=== PATIENT | male | born 1950 | race Caucasian/White ===

== ENCOUNTER 2017-05-24 10:54 | Inpatient (IN) | payer MEDICARE, OTHER ==
[2017-05-24 11:08] VITALS: BMI 26.6
--- NOTE | 2017-05-24 11:10 | ED PDOC ---
Arrival/HPI - General Time Seen by Provider: 05/24/17 10:59 Historian: Patient - History of Present Illness Narrative History of Present Illness (Text): 05/24/17 11:00 Mil Ruiz is a 66 year old male who presents to the emergency department complaining of continuous chest heaviness with associated mild shortness of breath since 23:00 last night. Patient notes that he has had multiple similar episodes previously. Patient endorses that he took his aspirin medication this morning. Patient denies any nausea, diarrhea, diaphoresis, or any other complaints at this time. Patient is not a smoker or a drinker. Time/Duration: Other (since 23:00 last night) Symptom Course: Unchanged Severity Level: Mild Activities at Onset: Rest Context: Home Past Medical History - Provider Review Nursing Documentation Reviewed: Yes - Infectious Disease Hx of Infectious Diseases: None - Cardiac Hx Hypertension: Yes - Pulmonary Hx Respiratory Disorders: No - Neurological Hx Neurological Disorder: No - HEENT Hx Blind: Yes (left eye, diminished vision right eye) Hx Glaucoma: Yes (both eyes) - Renal Hx Renal Disorder: No - Endocrine/Metabolic Hx Diabetes Mellitus Type 2: Yes - Hematological/Oncological Hx Blood Transfusions: No Hx Blood Transfusion Reaction: No - Integumentary Hx Dermatological Disorder: No - Musculoskeletal/Rheumatological Hx Musculoskeletal Disorders: No - Gastrointestinal Hx Gastrointestinal Disorders: No - Genitourinary/Gynecological Hx Genitourinary Disorders: No - Psychiatric Hx Psychophysiologic Disorder: No Hx Substance Use: No - Past Surgical History Past Surgical History: Non-Contributing - Surgical History Hx Cataract Extraction: Yes Other/Comment: Retina surger Left eye, - Anesthesia Hx Anesthesia: Yes - Suicidal Assessment Feels Threatened In Home Enviroment: No Family/Social History - Physician Review Nursing Documentation Reviewed: Yes Family/Social History: No Known Family HX Smoking Status: Never Smoked Hx Alcohol Use: No Hx Substance Use: No Hx Substance Use Treatment: No Allergies/Home Meds Allergies/Adverse Reactions: Allergies No Known Allergies Allergy (Verified 03/31/13 16:18) Home Medications: Home Meds Medication Instructions Recorded Confirmed Losartan [Cozaar] 25 mg PO DAILY 03/31/13 06/18/15 Aspirin [Aspirin Chewable] 81 mg PO DAILY 06/18/15 06/18/15 Bimatoprost [Lumigan] 1 drop OD BID 06/18/15 06/18/15 Brimonidine 0.15% [Alphagan P 1 drop OD TID 06/18/15 06/18/15 0.15% Opht] Dorzolamide HCl/Timolol Maleat 1 drop OD DAILY 06/18/15 06/18/15 [Dorzolamide-Timolol Eye Drops] Glyburide/Metformin HCl 2 tab PO Q12H 06/18/15 06/18/15 [Glucovance 5-500 mg Tablet] Pilocarpine 1% Opht [Isopto 1 drop OD QID 06/18/15 06/18/15 Carpine 1% Opht Soln] Prednisolone Acetate [Omnipred] 1 drop OS QID 06/18/15 06/18/15 Review of Systems - Physician Review All systems were reviewed & negative as marked: Yes - Review of Systems Constitutional: absent: Fevers, Night Sweats Eyes: absent: Vision Changes ENT: absent: Hearing Changes Respiratory: SOB (mild). absent: Cough Cardiovascular: Chest Pain (chest heaviness) Gastrointestinal: absent: Abdominal Pain Genitourinary Male: absent: Dysuria, Frequency Musculoskeletal: absent: Arthralgias, Back Pain Skin: absent: Rash, Pruritis Neurological: absent: Headache, Dizziness Endocrine: absent: Diaphoresis, Polyuria Hemo/Lymphatic: absent: Adenopathy Psychiatric: absent: Anxiety, Depression Physical Exam Vital Signs Reviewed: Yes Vital Signs Temp Pulse Resp BP Pulse Ox 05/24/17 13:54 71 18 139/78 100 05/24/17 12:53 63 16 104/63 100 05/24/17 12:38 69 16 103/59 L 100 05/24/17 12:37 60 20 87/47 L 99 05/24/17 11:06 98.4 F 88 16 158/87 H 100 05/24/17 11:00 65 18 116/69 98 Temperature: Afebrile Blood Pressure: Normal Pulse: Regular Respiratory Rate: Normal Appearance: Positive for: Well-Appearing, Non-Toxic, Comfortable, Uncomfortable Pain Distress: Mild Mental Status: Positive for: Alert and Oriented X 3 - Systems Exam Head: Present: Atraumatic, Normocephalic Pupils: Present: Other (Left eye blind with severe cataract) Mouth: Present: Moist Mucous Membranes Pharnyx: No: ERYTHEMA, EXUDATE, TONSILS ENLARGED Neck: Present: Normal Range of Motion Respiratory/Chest: Present: Clear to Auscultation, Good Air Exchange, Decreased Breath Sounds. No: Respiratory Distress, Accessory Muscle Use Cardiovascular: Present: Regular Rate and Rhythm, Normal S1, S2. No: Murmurs Abdomen: Present: Normal Bowel Sounds. No: Tenderness, Distention, Peritoneal Signs, Rebound, Guarding Upper Extremity: Present: Normal Inspection. No: Cyanosis, Edema Lower Extremity: Present: Normal Inspection. No: Edema Neurological: Present: GCS=15, CN II-XII Intact, Speech Normal, Motor Func Grossly Intact Skin: Present: Warm, Dry, Normal Color. No: Rashes Psychiatric: Present: Alert, Oriented x 3, Normal Insight, Normal Concentration Medical Decision Making ED Course and Treatment: 05/24/17 11:13 Impression: 66 year old male complaining of continuous chest heaviness with associated mild shortness of breath since 23:00 last night. Differential Diagnosis included but are not limited to: CHF vs. CAD Plan: -- EKG -- Chest X-ray -- Labs -- Nitroglycerin -- Reassess and disposition Prior Visits: Notes and results from previous visits were reviewed. Patient was last seen in the emergency department on 06/18/15 for hypertension. Patient left against medical advice. Progress Notes: 05/24/17 11:35 Chest X-ray: Creator : Christen Magana MD FINDINGS: LUNGS:The lungs are clear. PLEURA:No significant pleural effusion identified, no pneumothorax apparent. CARDIOVASCULAR:The heart is normal in size. There is stable position of a left- sided dual lead transvenous permanent pacing device. OSSEOUS STRUCTURES:No significant abnormalities. VISUALIZED UPPER ABDOMEN:Normal. OTHER FINDINGS:None. IMPRESSION: No active pulmonary disease. 05/24/17 12:[address] Saul, who is aware and will come to emergency department for consult. 05/24/17 12:[address] Loredo, who is aware and accepts patient admission to telemetry. 05/24/17 12:20 EKG is pacing rate approximately [address] or T-wave changes 05/24/17 14:06 , was here and saw the patient - Lab Interpretations Lab Results: 05/24/17 11:00 05/24/17 11:00 Lab Results 05/24/17 11:00: Sodium 140, Potassium 3.6, Chloride 108 H, Carbon Dioxide 18 L, Anion Gap 17, BUN 21, Creatinine 1.3, Est GFR ( Amer) > 60, Est GFR (Non- Af Amer) 55, Random Glucose 210 H, Calcium 9.6, Total Bilirubin 0.4, AST 18, ALT 29, Alkaline Phosphatase 109, Lactate Dehydrogenase 310 L, Total Creatine Kinase 36, Troponin I 0.11 D, NT-Pro-B Natriuret Pep 66.0, Total Protein 7.3, Albumin 4.0, Globulin 3.4, Albumin/Globulin Ratio 1.2 05/24/17 11:00: PT 10.9, INR 0.95, APTT 31.3 05/24/17 11:00: WBC 9.2, RBC 5.12, Hgb 14.5, Hct 44.4, MCV 86.7, MCH 28.3, MCHC 32.7, RDW 14.8 H, Plt Count 267, MPV 10.2, Gran % 63.6, Lymph % (Auto) 21.3 L, Dixie % (Auto) 6.3 H, Eos % (Auto) 8.7 H, Baso % (Auto) 0.1, Gran # 5.87, Lymph # 2.0, Dixie # 0.6, Eos # 0.8 H, Baso # 0.01 I have reviewed the lab results: Yes - RAD Interpretation Radiology Orders: 05/24/17 11:08 CHEST PORTABLE [RAD] Stat - Medication Orders Current Medication Orders: Discontinued Medications Nitroglycerin (Nitrostat Sl Tab) 0.4 mg SL STAT STA Stop: 05/24/17 11:10 Last Admin: 05/24/17 11:29 Dose: 0.4 mg Nitroglycerin (Nitro-Bid 2% Oint) 1 ea TOP STAT STA Stop: 05/24/17 12:20 Last Admin: 05/24/17 12:37 Dose: Not Given Non-Admin Reason: BP Parameters Not Met - Scribe Statement The provider has reviewed the documentation as recorded by the Scribe Anni Espinal Provider Scribe Attestation: All medical record entries made by the Scribe were at my direction and personally dictated by me. I have reviewed the chart and agree that the record accurately reflects my personal performance of the history, physical exam, medical decision making, and the department course for this patient. I have also personally directed, reviewed, and agree with the discharge instructions and disposition. Disposition/Present on Arrival - Present on Arrival Any Indicators Present on Arrival: No History of DVT/PE: No History of Uncontrolled Diabetes: Yes Urinary Catheter: No History of Decub. Ulcer: No History Surgical Site Infection Following: None - Disposition Have Diagnosis and Disposition been Completed?: Yes Diagnosis: Chest pain, Elevated troponin Disposition: HOSPITALIZED Disposition Time: 12:21 Patient Plan: Admission, Telemetry Patient Problems: Current Active Problems Problem Status Onset Chest pain Acute Elevated troponin Acute Condition: SERIOUS
[2017-05-24 11:34] LABS: BASO # 0.01 K/mm3 (0.0-2.0); BASO % 0.1 % (0.0-3.0); EOS # 0.8 (0.0-0.7); EOS % 8.7 % (1.5-5.0); GRAN # 5.87 (1.4-6.5); GRAN % 63.6 % (50.0-68.0); HEMOGLOBIN 14.5 g/dL (14.0-18.0); LYMPH % 21.3 % (22.0-35.0); MEAN CELL VOLUME 86.7 fl (80.0-105.0); MEAN CORPUSCULAR HEMOGLOBIN 28.3 pg (25.0-35.0); MEAN CORPUSCULAR HGB CONC 32.7 g/dl (31.0-37.0); MEAN PLATELET VOLUME 10.2 fl (7.0-11.0); MONO # 0.6 (0.1-0.6); MONO % 6.3 % (1.0-6.0); RBC 5.12 10^6/uL (3.5-6.1); RED CELL DISTRIBUTION WIDTH 14.8 % (11.5-14.5); WHITE BLOOD COUNT 9.2 10^3/ul (4.5-11.0)
--- NOTE | 2017-05-24 11:36 | RAD ---
HISTORY: Chest pain COMPARISON: 06/18/2015. FINDINGS: LUNGS: The lungs are clear. PLEURA: No significant pleural effusion identified, no pneumothorax apparent. CARDIOVASCULAR: The heart is normal in size. There is stable position of a left-sided dual lead transvenous permanent pacing device. OSSEOUS STRUCTURES: No significant abnormalities. VISUALIZED UPPER ABDOMEN: Normal. OTHER FINDINGS: None. IMPRESSION: No active pulmonary disease.
[2017-05-24 11:44] LABS: INR 0.95 (0.93-1.08); PARTIAL THROMBOPLASTIN TIME 31.3 Seconds (25.1-36.5); PROTHROMBIN TIME 10.9 SECONDS (9.4-12.5)
[2017-05-24 11:56] LABS: TROPONIN I 0.11 ng/mL
[2017-05-24 11:59] LABS: ALB/GLOB RATIO 1.2 (1.1-1.8); ALT/SGPT 29 U/L (7-56); AST/SGOT 18 U/L (17-59); BLOOD UREA NITROGEN 21 mg/dL (7-21); CALCIUM 9.6 mg/dL (8.4-10.5); GFR AFRICAN-AMERICAN > 60; GFR NON-AFRICAN AMERICAN 55
[2017-05-24] MEDS: Nitroglycerin 2% Ointment Foilpak UD TOP STA ×2 (12:30→12:37)
--- NOTE | 2017-05-24 13:54 | CARD ---
APPROVED REPORT EKG Measurement Heart [id number] <Conclusion> Electronic atrial pacemaker: 100 % A. Paced
[2017-05-24] MEDS ORDERED: Enoxaparin 80 mg Syringe SC STA (14:43)
[2017-05-24] MEDS ORDERED: Aspirin 325 mg EC Tablets PO STA (14:44)
[2017-05-24 19:24] LABS: CK MB% 5.1 % (2.5-3.0); CK-MB 14.9 ng/mL (0.0-3.6); TROPONIN I 3.3 ng/mL
--- NOTE | 2017-05-25 02:19 | CON ---
DATE: 05/24/2017 REASON FOR CONSULTATION AND FOLLOWUP: Chest pain, unstable angina, acute coronary syndrome, rule out non-ST segment myocardial infarction. BRIEF CLINICAL HISTORY: This is a 66-year-old male with past medical history significant for diabetes, hypertension, hyperlipidemia, history of sick sinus syndrome with status post permanent pacemaker on 04/01/2013. Last stress test on 04/03/2013 was normal, who was recently having chest pain off and on since a month. He used to see four months ago. He had a stress test and echo done and was told that probably one artery is blocking, suggested cardiac catheterization, but the patient wanted to be treated medically and has started taking . Now since one month, he is having chest pain off and on. Last night, the patient had chest pain since 11:00 p.m. and continued till today morning, so he decided to come to the Emergency Room. Chest pain felt the tightness, heaviness and squeezing pain of the chest. PAST MEDICAL HISTORY: Significant for diabetes, hypertension, hyperlipidemia, sick sinus syndrome, status past permanent pacemaker, dual chamber 04/01/2013. SOCIAL HISTORY: Denies smoking. Denies any history of alcohol abuse. 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 FAMILY HISTORY: Noncontributory. No history of coronary artery disease. CURRENT MEDICATIONS: The patient is taking prednisone, pilocarpine, metoprolol, losartan, glyburide, gemfibrozil, and aspirin. REVIEW OF SYSTEMS: As per HPI. PHYSICAL EXAMINATION: As follows: VITAL SIGNS: Temperature is afebrile, heart rate is 77, and blood pressure is 139/78. HEENT: PERRLA. Extraocular muscles are intact. NECK: Supple. No carotid bruits or thyromegaly. CHEST: Clear to auscultation. HEART: S1 and S2, regular. ABDOMEN: Soft. EXTREMITIES: Clubbing and cyanosis negative. LABORATORY DATA: Blood workup as follows: WBC of 9.0, hemoglobin of 14.0, hematocrit of 44.4, and platelet count of 267. Chemistry shows sodium of 140, potassium of 3.0, chloride of 108, carbon dioxide of 18, anion gap of 17, BUN of 21, and creatinine of 1.3. Troponin of 0.11. DIAGNOSTIC DATA: EKG shows normal sinus V-paced rhythm. Previous cardiac workup as follows, the patient's stress test on 04/03/2013 is essentially normal. The patient had a pacemaker on 04/05/2013, dual chamber pacemaker. Recently, four months ago at [facility], the patient has a stress test done by PMD and echo suggested one blockage and suggest cardiac catheterization. IMPRESSION: A 66-year-old male with a past history of diabetes, hypertension, hyperlipidemia, sick sinus syndrome, status post pacemaker on 03/29/2013, admitted with unstable angina, acute coronary syndrome. Risks and benefits already discussed with the patient,the patient's son and daughter, and the patient agreed to proceed for cardiac catheterization. In the interim, we will start beta-yonny, aspirin, Plavix, Lovenox and keep n.p.o. after 12 midnight for cardiac catheterization. Further recommendations after cardiac catheterization, we will follow with you. Thank you for providing us the opportunity in taking care of the patient, Mil Ruiz. Jaylene Saul MD
[2017-05-25 07:21] LABS: BASO # 0.01 K/mm3 (0.0-2.0); BASO % 0.1 % (0.0-3.0); GRAN # 6.03 (1.4-6.5); GRAN % 62.4 % (50.0-68.0); HEMOGLOBIN 14.2 g/dL (14.0-18.0); LYMPH # 1.9 (1.2-3.4); LYMPH % 19.2 % (22.0-35.0); MEAN CELL VOLUME 85.9 fl (80.0-105.0); MEAN CORPUSCULAR HEMOGLOBIN 27.5 pg (25.0-35.0); MEAN CORPUSCULAR HGB CONC 32.1 g/dl (31.0-37.0); MEAN PLATELET VOLUME 10.2 fl (7.0-11.0); MONO # 0.8 (0.1-0.6); MONO % 8.3 % (1.0-6.0); RBC 5.16 10^6/uL (3.5-6.1); RED CELL DISTRIBUTION WIDTH 14.7 % (11.5-14.5); WHITE BLOOD COUNT 9.7 10^3/ul (4.5-11.0)
[2017-05-25 07:53] LABS: LDL CHOLESTEROL 105 mg/dL (0-129)
[2017-05-25 07:57] LABS: ALB/GLOB RATIO 1.2 (1.1-1.8); ALT/SGPT 31 U/L (7-56); AST/SGOT 56 U/L (17-59); BLOOD UREA NITROGEN 17 mg/dL (7-21); CALCIUM 9.4 mg/dL (8.4-10.5); GFR AFRICAN-AMERICAN > 60; GFR NON-AFRICAN AMERICAN 55; HDL CHOLESTEROL 33 mg/dL (29-60); MAGNESIUM 1.8 mg/dL (1.7-2.2)
[2017-05-25] MEDS ORDERED: Lidocaine 2% Inj (20ml) ONE (08:13)
[2017-05-25] MEDS ORDERED: Iodixanol 320 MG/ML 200 ML BOTTLE IV ONE (08:14)
[2017-05-25] MEDS ORDERED: HEPARIN SODIUM/NS 2,000 ML IV ONE (08:14)
[2017-05-25] MEDS ORDERED: Nitroglycerin 50mg in D5W 50 MG/250 ML BOTTLE IV ONE (08:14)
[2017-05-25] MEDS ORDERED: Midazolam 2 MG/2 ML VIAL ONE ×2 (08:14→09:16)
[2017-05-25 08:26] LABS: TROPONIN I 9.25 ng/mL
[2017-05-25 08:55] LABS: CK MB% 5.3 % (2.5-3.0); CK-MB 15.3 ng/mL (0.0-3.6)
[2017-05-25] MEDS ORDERED: Eptifibatide 20 mg/10mL Inj IVP ONE (09:31)
[2017-05-25] MEDS ORDERED: Eptifibatide 0.75 mg/ml 75 MG/100 ML BOTTLE IV ONE (10:01)
[2017-05-25] MEDS: Eptifibatide 0.75 mg/ml 75 MG/100 ML BOTTLE IV SCH ×2 (10:45→17:38)
[2017-05-25] MEDS: Morphine 2 mg/ml ISec IVP PRN ×2 (11:27→17:49)
[2017-05-25] MEDS: Insulin Reg-LOW-Coverage SC SCH ×3 (11:32→21:41)
[2017-05-25] MEDS: Sodium Chloride 0.9% 1,000 ML IV SCH ×2 (11:46→19:10)
--- NOTE | 2017-05-25 12:24 | CARD ---
APPROVED REPORT Procedure(s) performed: Left Heart Catheterization PTCA with Stenting of Mid LAD PTCA with Stenting of Mid Cx PTCA with Balloon Angioplasty of OM2 HISTORY The patient is a 66 year-old male with a history of : diabetes mellitus with oral treatment , hypertension , dyslipidemia , Admitted with ACS/ NSTEMI and rising troponin 0.11, 3.53 ,and 9.52. INDICATION The indication(s) include : non-STEMI . CASE TECHNIQUE The patient was brought urgently to the Cardiac Catheterization Laboratory in a fasting state and was prepped and draped in a sterile manner. The left wrist was infiltrated with 2% Lidocaine subcutaneous anesthesia. A 6FR GLIDESSignal VineTH ACCESS KIT sheath was inserted into the left radial artery without difficulty. Coronary angiography was performed using coronary diagnostic catheters. The left coronary system was accessed and visualized with a Diagnostic ,5 Fr JL 3.5 catheter. The right coronary system was accessed and visualized with a Diagnostic ,5 Fr JR 4 catheter. The left ventricle was accessed and visualized with a 5 Fr Pigtail 145 (Angled) catheter. The left internal mammary artery was accessed and visualized with a 5 Fr Pigtail 145 (Angled) catheter. Left ventricular/Aortic Valve gradient assessed on pullback. Left ventriculogram was performed in HAWKINS projection. Closure device was deployed with a Fr TR Band (Regular) without any complications. The patient tolerated the procedure well and there were no complications associated with the procedure. Vessel Analysis The patient's coronary anatomy is right dominant. The left main coronary artery is a medium size vessel with diffuse calcification noted throughout this vessel and without significant stenosis. The left main bifurcates to the left anterior descending and circumflex. The left anterior descending artery is a medium size vessel with diffuse calcification noted throughout this vessel and without significant stenosis. There is a 90% stenosis in the mid segment. two stenoses The first diagonal branch is a small size vessel with diffuse calcification noted throughout this vessel and without significant stenosis. The second diagonal branch is a small size vessel with diffuse calcification noted throughout this vessel and without significant stenosis. The circumflex artery is a medium size vessel with diffuse calcification noted throughout this vessel and without significant stenosis. heavily calcified There is a 99% stenosis in the mid segment. The first obtuse marginal branch is a medium size vessel with diffuse calcification noted throughout this vessel and without significant stenosis. There is a 60% stenosis in the distal segment. The second obtuse marginal branch is a medium size vessel with diffuse calcification noted throughout this vessel and without significant stenosis. There is a 90% stenosis in the ostial segment. The right coronary artery is a medium size vessel with diffuse calcification noted throughout this vessel and without significant stenosis. heavily calcified There is a 90% stenosis in the proximal, Mid, and distal segment. multiple stenoses The right posterior descending artery is a small size vessel with diffuse calcification noted throughout this vessel and without significant stenosis. There is a 90% stenosis in the mid segment. Left Ventricle The left ventricle is borderline in size with borderline contractility. Ischemic cardiomyopathy. The left ventricular ejection fraction is estimated to be 50%. The left ventricular end diastolic pressure is 16 mmHg. There was no gradient across the aortic valve upon pullback. PCI Technique Lesion Anticoagulation was achieved with Heparin. Percutaneous coronary intervention was performed on the mid circumflex artery segment . The lesion stenosis prior to intervention was 99% with JAYDEN flow. A 6 Fr XB 3.5 Guide Catheter was used to engage the ostium. BALLOON DILATION A Balloon catheter 2.0 x 12 mm Mini Trek RX was inserted and inflated up to 8.00atm for 15seconds. STENT DEPLOYMENT A drug-eluting stent 2.5 x 18 mm Resolute ARNULFO was inserted and inflated up to 8.00atm for 15seconds. Final angiography reveals 0 % stenosis with JAYDEN 3 flow. PCI Technique Lesion 2 Percutaneous Coronary Intervention was performed on the second obtuse marginal branch segment. The lesion stenosis prior to intervention was 90% with JAYDEN 2 flow. A 6 Fr XB 3.5 Guide Catheter was used to engage the ostium. BALLOON DILATION A Balloon catheter 2.0 x 12 mm Mini Trek RX was inserted and inflated up to 8.00atm for 15seconds. Final angiography reveals 10-20 % stenosis with JAYDEN 3 flow. PCI Technique Lesion 3 Percutaneous Coronary Intervention was performed on the mid left anterior descending artery segment. The lesion stenosis prior to intervention was 90% with JAYDEN 2 flow. A 6 Fr XB 3.5 Guide Catheter was used to engage the ostium. A 0.014 x 182 cm Choice PT Extra Support Interventional Guidewire was used to cross the lesion. BALLOON DILATION A Balloon catheter 2.0 x 12 mm Mini Trek RX was inserted and inflated up to 10.00atm for 15seconds. STENT DEPLOYMENT A drug-eluting stent 3.0 x 26 mm Resolute ARNULFO was inserted and inflated up to 12.00atm for 15seconds. POST STENT DEPLOYMENT BALLOON DILATION A Balloon catheter 3.25 x 12 mm Trek RX NC was inserted and inflated up to 14.00atm for 15seconds. Final angiography reveals 0 % stenosis with JAYDEN 3 flow. Conclusion Triple vessel CAD, heavily caicified coronaries, distal vessel are not good target for CABG. Preserved LV [id number], EDP-16 mmof hg. Successful PTCA with ARNULFO of Mid LAD Successful PTCA with ARNULFO of Mid Cx Successful POBA of OM2 Recommendations Daily ASA with Plavix for at least one year Aggressive Medical TherapyCardiac Risk Reduction Program Weight Loss Reduction Program staged PTCA of RCA in four weeks on 06/21/2017 at 7:30 am CC; Drs. Gila Crooks/ Hudson Loredo
--- NOTE | 2017-05-25 12:42 | PN ---
DATE: 05/25/2017 REASON FOR CONSULTATION: Followup acute coronary syndrome, unstable angina with non-ST segment myocardial infarction, troponin 3.58, status post cath and PTCA. SUBJECTIVE: The patient denies any chest pain, shortness of breath or any palpitation. OBJECTIVE: GENERAL: Not in apparent distress. VITAL SIGNS: As follows; temperature afebrile, heart rate 62, and blood pressure 109/56. HEENT: PERRLA. Extraocular muscles intact. NECK: Supple. No carotid bruit or thyromegaly. CHEST: Clear to auscultation. HEART: S1 and S2 regular. ABDOMEN: Soft. EXTREMITIES: Clubbing and cyanosis negative. LABORATORY DATA: Blood workup as follows: WBC 9.7, hemoglobin 14.2, hematocrit of 44.3, and platelet count 262. Chemistry shows sodium 141, potassium 3.6, chloride 109, carbon dioxide 18, anion gap 17, BUN 17, and creatinine 1.3. Troponin this morning 9.25. IMPRESSION: Non-ST segment myocardial infarction, coronary artery disease, status post cardiac catheterization, 3 vessel disease, distal target right coronary artery circumflex not good for open heart surgery, so patient underwent percutaneous transluminal coronary angioplasty with drug-eluting stent of left anterior descending and drug-eluting stent of circumflex and plain balloon angioplasty of obtuse marginal 1. PLAN: Schedule for PTCA of RCA in 4 weeks on 06/21/2017 at 07:30. Interim continue aspirin, Plavix mandatory for 1 year preferable extended period of time, continue overnight. Interim continue beta-yonny. Continue losartan and continue atorvastatin. We will follow with you. Thank you Dr. Loredo for providing us the opportunity in taking care of the patient, Mil Ruiz. Jaylene Saul MD
--- NOTE | 2017-05-25 12:51 | HP ---
HISTORY OF PRESENT ILLNESS: This is a 66-year-old male who is coming to the hospital with complaints of chest pain substernal. He said it started at about 11:00 the night before coming to the hospital. The patient says that it is on and off. He did take his aspirin. He has no complaints of any fever or chills. No nausea or vomiting. He had a history of diabetes, hypertension, dyslipidemia, and sick sinus syndrome. The patient had a pacemaker placed in 03/2013. He also had a stress test at that time. He was offered cardiac cath, but the patient wanted to be treated likely. The patient is going for cardiac catheterization is feeling better. He has no nausea, no vomiting, no fevers. He says he feels well. He is able to ambulate. Chest tightness is gone. REVIEW OF SYSTEMS: All other review of symptoms are within normal limits except as mentioned. ALLERGIES: NO KNOWN DRUG ALLERGIES. PAST MEDICAL HISTORY: As above. SOCIAL HISTORY: The patient does not smoke or drink. 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 FAMILY HISTORY: Noncontributory. Unknown history of cardiac disease in the family. MEDICATIONS: Have been reviewed. He is on Cozaar, aspirin, Lumigan, Alphagan, dorzolamide/timolol, Glucovance/metformin, pilocarpine, and Prednisolone Acetate drops. PHYSICAL EXAMINATION: VITAL SIGNS: Temperature is 98.7, pulse is 68, blood pressure is 112/76, respirations are 20, and O2 saturations are 98%. Height is 5 feet 8 inches. Weight is 175 pounds. BMI is 26.6. GENERAL: The patient lying in bed, uncomfortable, and in no acute distress. HEENT: Atraumatic and normocephalic. Anicteric sclerae. Moist mucosa. [place] conjunctivae. No oral lesions. NECK: No JVD, anterior and posterior adenopathy, thyromegaly, or bruits. CARDIOVASCULAR: S1 and S2 regular. No murmur, rubs, or gallop. LUNGS: Clear to auscultation bilaterally. No wheezes, rales, or rhonchi. ABDOMEN: Bowel sounds are positive. Soft, nontender and nondistended. No hepatosplenomegaly. No rebound and no guarding EXTREMITIES: No cyanosis, clubbing, or edema. NEUROLOGIC: No facial asymmetry. Tongue is midline. No uvula deviation. Power is 5/5 upper extremity and lower extremity. Sensation intact in upper extremity and lower extremity. PSYCHIATRIC: She is awake, alert and oriented x3. No anxiety or depression. She has normal affect. GENITOURINARY: No CVA tenderness. VASCULAR: 2+ pulses in the carotid pulses and pedal pulses. SKIN: No erythema or nodules SPINE: Shows normal curvature. LABORATORY DATA: Labs have been reviewed. White count of 9.2 and hemoglobin of 14.5. Chemistry shows initial troponin was 0.11, second troponin is 3.3, he has potassium of 3.6, creatinine is 1.3, and albumin is 4.0. His proBNP is 66. LDL is 105. The patient's INR is 0.95. Chest x-ray done shows no active disease. EKG shows atrial placed rhythm. ASSESSMENT: 1. Non-ST elevation myocardial infarction. 2. Diabetes type 2. 3. Pacemaker. 4. Hypertension. 5. Glaucoma bilaterally. 6. Arthritis. PLAN: The patient is going for a cardiac catheterization. The patient is going to be on losartan for his hypertension. The patient is on aspirin daily. He is on metoprolol for his myocardial infarction. He is also given Plavix. He will need to be on all his medications. He was on metformin, I will hold that. He is on Gemfibrozil, I will hold that for now as well. I will place him on insulin sliding scale. We will wait for the results after the patient had his cardiac catheterization. The patient was seen by Dr. Saul, I appreciate his input. I did review his notes. Laith Loredo MD
[2017-05-25] MEDS: Brimonidine 0.15% 50 DROP/5 ML BOTTLE OD SCH ×3 (13:19→17:37)
[2017-05-25] MEDS: Dorzolamide 2%/Timolol 0.5% 100 DROP/10 ML BOTTLE OD SCH (13:19)
[2017-05-25 14:17] LABS: BASO # 0.01 K/mm3 (0.0-2.0); BASO % 0.1 % (0.0-3.0); EOS # 0.3 (0.0-0.7); EOS % 3.9 % (1.5-5.0); GRAN # 6.5 (1.4-6.5); GRAN % 77.2 % (50.0-68.0); HEMOGLOBIN 13.8 g/dL (14.0-18.0); LYMPH # 1.3 (1.2-3.4); LYMPH % 15.2 % (22.0-35.0); MEAN CELL VOLUME 85.8 fl (80.0-105.0); MEAN CORPUSCULAR HGB CONC 32.7 g/dl (31.0-37.0); MEAN PLATELET VOLUME 9.8 fl (7.0-11.0); MONO # 0.3 (0.1-0.6); MONO % 3.6 % (1.0-6.0); RBC 4.92 10^6/uL (3.5-6.1); RED CELL DISTRIBUTION WIDTH 14.8 % (11.5-14.5); WHITE BLOOD COUNT 8.4 10^3/ul (4.5-11.0)
[2017-05-25 14:29] LABS: BLOOD UREA NITROGEN 16 mg/dL (7-21); CALCIUM 8.6 mg/dL (8.4-10.5); GFR AFRICAN-AMERICAN > 60; GFR NON-AFRICAN AMERICAN > 60
--- NOTE | 2017-05-25 14:47 | CARD ---
APPROVED REPORT EKG Measurement Heart [id number] <Conclusion> Electronic atrial pacemaker Inferior infarct, age undetermined Increased ST elevation 2,3,F.
[2017-05-25] MEDS ORDERED: Bacitracin Ointment 30 GM TUBE TOP ONE (16:34)
[2017-05-25] MEDS ORDERED: Bacitracin 500 Units/gm Oint Foilpak UD ONE (16:41)
[2017-05-26] MEDS: Morphine 2 mg/ml ISec IVP PRN (00:50)
[2017-05-26] MEDS: Eptifibatide 0.75 mg/ml 75 MG/100 ML BOTTLE IV SCH ×2 (00:50→02:40)
[2017-05-26 06:48] LABS: HEMOGLOBIN 13.5 g/dL (14.0-18.0); MEAN CELL VOLUME 86.6 fl (80.0-105.0); MEAN CORPUSCULAR HEMOGLOBIN 27.8 pg (25.0-35.0); MEAN CORPUSCULAR HGB CONC 32.1 g/dl (31.0-37.0); MEAN PLATELET VOLUME 10.3 fl (7.0-11.0); RBC 4.86 10^6/uL (3.5-6.1); RED CELL DISTRIBUTION WIDTH 14.7 % (11.5-14.5); WHITE BLOOD COUNT 12.4 10^3/ul (4.5-11.0)
[2017-05-26 07:07] LABS: ALB/GLOB RATIO 1.2 (1.1-1.8); ALBUMIN 3.7 g/dL (3.0-4.8); ALT/SGPT 35 U/L (7-56); AST/SGOT 109 U/L (17-59); BLOOD UREA NITROGEN 14 mg/dL (7-21); CALCIUM 8.8 mg/dL (8.4-10.5); GFR AFRICAN-AMERICAN > 60; GFR NON-AFRICAN AMERICAN > 60
[2017-05-26] MEDS: Insulin Reg-LOW-Coverage SC SCH (08:05)
[2017-05-26 09:17] VITALS: O2SAT 97
[2017-05-26] MEDS: Dorzolamide 2%/Timolol 0.5% 100 DROP/10 ML BOTTLE OD SCH (09:22)
[2017-05-26] MEDS: Brimonidine 0.15% 50 DROP/5 ML BOTTLE OD SCH (09:22)
--- NOTE | 2017-05-26 10:04 | CARD ---
APPROVED REPORT EKG Measurement Heart [id number] <Conclusion> Poor data quality, interpretation may be adversely affected Electronic atrial pacemaker Inferior infarct, age undetermined Abnormal ECG
[2017-05-26] MEDS ORDERED: Potassium Chloride 20 mEq ER Tab PO ONE (10:20)
[2017-05-26] MEDS ORDERED: Pneumococcal 23-Valent Vaccine IM ONE (10:37)
--- NOTE | 2017-05-26 11:51 | CARD ---
APPROVED REPORT EKG Measurement Heart [id number] <Conclusion> Electronic atrial pacemaker Inferior infarct, age undetermined ST elevations 2,3,F
[2017-05-26 11:53] VITALS: BP 127/79; PULSE 65; RESP 20; TEMP 98
--- NOTE | 2017-05-26 12:26 | PN ---
DATE: 05/26/2017 REASON FOR CONSULTATION AND FOLLOWUP: Non-ST segment myocardial infarction, status post multivessel PTCA. SUBJECTIVE: The patient denies any chest pain, shortness of breath, or any palpitation. The patient is lying comfortably in echo lab having echo and no chest pain. OBJECTIVE: GENERAL: Not in apparent distress. VITAL SIGNS: As follows: Temperature afebrile, heart rate 67, and blood pressure 139/70. HEENT: PERRLA intact. NECK: Supple. No carotid bruits or thyromegaly. CHEST: Clear to auscultation. HEART: S1 and S2. Regular. ABDOMEN: Soft. EXTREMITIES: Clubbing and cyanosis negative. LABORATORY DATA: Blood workup as follows: WBC 12.1, hemoglobin 13.5, hematocrit 42.1, and platelet count 263. Chemistry shows sodium 141, potassium 3.0, chloride 111, carbon dioxide 20, anion gap of 13, BUN 14, and creatinine 1.2. IMPRESSION: Acute coronary syndrome, underlying non-ST segment myocardial infarction, diabetes, hypertension, hyperlipidemia, status post multivessel percutaneous transluminal coronary angioplasty including percutaneous transluminal coronary angioplasty of stent of left anterior descending, stent in circumflex, and plain balloon angioplasty of obtuse marginal 2. During the cardiac catheterization left ventricular function shows ejection fraction of 50% estimated. During the echocardiogram, just now saw while the patient is having echocardiogram in the Echocardiogram Laboratory, ejection fraction of 55% significantly improved. RECOMMENDATIONS: Continue aspirin and continue Plavix; mandatory for 1 year. Continue losartan. Continue metoprolol. Supplement potassium and discharge home. We will see in office in 2 weeks and will schedule PTCA of right coronary artery 06/30/2017 at 7:30. Jaylene Saul MD
--- NOTE | 2017-05-26 16:35 | CARD ---
APPROVED REPORT EXAM: Two-dimensional and M-mode echocardiogram with Doppler and color Doppler. INDICATION Chest Pain 2D DIMENSIONS Left Atrium (2D)3.3 (1.6-4.0cm)IVSd1.1 (0.7-1.1cm) LVDd3.9 (3.9-5.9cm)PWd1.2 (0.7-1.1cm) LVDs2.8 (2.5-4.0cm)FS (%) 29.3 % LVEF (%)56.8 (>50%) M-Mode DIMENSIONS Aortic Root2.90 (2.2-3.7cm)Aortic Cusp Exc.2.10 (1.5-2.0cm) Aortic Valve AoV Peak Shxgsirr434.0cm/[place] Peak GR.8mmHg Mitral Valve E/A ratio0.0 TDI E/Lateral E'0.0E/Medial E'0.0 Tricuspid Valve TR Peak [id number]/sRAP [id number] Peak Gr.27mmHg [id number] LEFT VENTRICLE The left ventricle is normal size. There is borderline to mild concentric left ventricular hypertrophy. The left ventricular function is normal.EF-55-60% There is normal LV segmental wall motion. The left ventricular diastolic function is normal. No left ventricle thrombus noted on this study. There is no ventricular septal defect visualized. There is no left ventricular aneurysm. RIGHT VENTRICLE The right ventricle is normal size. There is normal right ventricular wall thickness. The right ventricular systolic function is normal. ATRIA The left atrium size is normal. The right atrium size is normal. The interatrial septum is intact with no evidence for an atrial septal defect. AORTIC VALVE The aortic valve is mildly thickened but opens well. The aortic valve is moderately sclerotic. There is trace aortic regurgitation. There is no aortic valvular stenosis. There is no aortic valvular vegetation. MITRAL VALVE The mitral valve is thickened but opens well. Mitral annular calcification is mild to moderate. Mitral regurgitation is trace to mild. There is no mitral valve stenosis. There is no evidence of mitral valve prolapse. TRICUSPID VALVE The tricuspid valve leaflets are thickened , but open well. There is trace to mild tricuspid regurgitation.RVSP-37 mmof Hg. There is no tricuspid valve stenosis. There is no tricuspid valve prolapse or vegetation. PULMONIC VALVE The pulmonic valve is mildly thickened. There is trace pulmonic valvular regurgitation. There is no pulmonic valvular stenosis. GREAT VESSELS The aortic root is normal in size. The ascending aorta is normal in size. The pulmonary artery is normal. The IVC is normal in size and collapses >50% with inspiration. PERICARDIAL EFFUSION There is no pleural effusion. There is no pericardial effusion. <Conclusion> The left ventricle is normal size. There is borderline to mild concentric left ventricular hypertrophy. The left ventricular function is normal.EF-55-60% There is trace aortic regurgitation. There is no aortic valvular stenosis. Mitral regurgitation is trace to mild. There is trace to mild tricuspid regurgitation.RVSP-37 mmof Hg. The IVC is normal in size and collapses >50% with inspiration. There is no pericardial effusion.
--- NOTE | 2017-05-26 19:47 | DS ---
HISTORY OF PRESENT ILLNESS: The patient has no complaints of any chest pain, no shortness of breath, no headaches. He went to the general production laborer yesterday because of a non-ST elevation [place]. The patient did well. He had a PCI with a drug-eluting stent in the left anterior descending artery and also a stent in the circumflex. The patient had also a balloon angioplasty of the obtuse marginal. The patient is going to be discharged home and again to follow up in 4 weeks for a second procedure. The patient is going to be on aspirin and Plavix. PHYSICAL EXAMINATION VITAL SIGNS: Temperature is 98.9, pulse is 65, blood pressure is 132/72, respirations 18, O2 saturation 100%. GENERAL: The patient is lying in bed, flat, comfortable. HEENT: No oral lesion. Anicteric sclerae. Moist mucosa. NECK: No JVD, adenopathy, or thyromegaly. CARDIOVASCULAR: S1 and S2, regular. No murmurs, rubs, or gallops. LUNGS: Clear to auscultation bilaterally. No wheeze, rales, or rhonchi. ABDOMEN: Bowel sounds are positive, soft, nontender and nondistended. EXTREMITIES: no cyanosis, clubbing or edema. ASSESSMENT: 1. Coronary artery disease status post percutaneous coronary intervention x3 stents. 2. Non-ST elevation myocardial infarction. 3. Diabetes type 2. 4. Pacemaker. 5. Hypertension. 6. Glaucoma, bilaterally. 7. Arthritis. PLAN: The patient is currently comfortable. He is on his eyedrops. He is going to continue with losartan for his hypertension. He is on aspirin and Plavix. The patient is going to continue with metoprolol. All of these are for his heart . He is on Lipitor for dyslipidemia. He has an echo that has been ordered. We will see if the patient is cleared by Dr. Saul for discharge. Laith Loredo MD
== END 2017-05-26 12:08 | disposition home or self-care (01) | DRG 247 ==
LOC: ED 10:54 → ERH 12:17 → 3RSO 17:36 → 2RSO 05-25 10:43
PROVIDERS: ADMIT Internal Medicine Nephrology; ATTEND Internal Medicine Nephrology
PROC: 027135Z Dilation of Coronary Artery, Two Arteries with Two Drug-eluting Intraluminal Devices, Percutaneous Approach (ICD-10-PCS; principal; 2017-05-25)
PROC: 4A023N7 Measurement of Cardiac Sampling and Pressure, Left Heart, Percutaneous Approach (ICD-10-PCS; 2017-05-25)
PROC: B2151ZZ Fluoroscopy of Left Heart using Low Osmolar Contrast (ICD-10-PCS; 2017-05-25)
PROC: B2111ZZ Fluoroscopy of Multiple Coronary Arteries using Low Osmolar Contrast (ICD-10-PCS; 2017-05-25)
PROC: 3E033PZ Introduction of Platelet Inhibitor into Peripheral Vein, Percutaneous Approach (ICD-10-PCS; 2017-05-25)
PROC: 3E0234Z Introduction of Serum, Toxoid and Vaccine into Muscle, Percutaneous Approach (ICD-10-PCS; 2017-05-26)
DX: I21.4 Non-ST elevation (NSTEMI) myocardial infarction (principal); I25.110 Atherosclerotic heart disease of native coronary artery with unstable angina pectoris; I25.5 Ischemic cardiomyopathy; I49.5 Sick sinus syndrome; E11.39 Type 2 diabetes mellitus with other diabetic ophthalmic complication; H40.9 Unspecified glaucoma; I10 Essential (primary) hypertension; E78.5 Hyperlipidemia, unspecified; M19.90 Unspecified osteoarthritis, unspecified site; Z95.0 Presence of cardiac pacemaker; Z79.84 Long term (current) use of oral hypoglycemic drugs; Z79.82 Long term (current) use of aspirin; Z23 Encounter for immunization

== ENCOUNTER 2017-05-29 15:02 | Inpatient (IN) | payer MEDICARE, OTHER ==
[2017-05-29] MEDS ORDERED: Morphine 2 mg/ml ISec IVP STA (15:22)
--- NOTE | 2017-05-29 15:27 | ED PDOC ---
Arrival/HPI - General Chief Complaint: Chest Pain Time Seen by Provider: 05/29/17 15:07 Historian: Patient, Family, Other (medical records) - History of Present Illness Narrative History of Present Illness (Text): 66yoM, CAD, stent placement, on plavix which pt took and now having chest pain, sternal, radiation to both the upper extremities. no n/v/purvis/dizziness/sob/ abdomen pain/loss of limb function/travel/prior blood clots/prior cancer history. 05/29/17 15:25 Time/Duration: Other (2 days) Symptom Course: Unchanged, Worsening Quality: Aching Severity Level: 5 Activities at Onset: Rest Context: Sitting Past Medical History - Provider Review Nursing Documentation Reviewed: Yes - Travel History Have you recently traveled outside [place] w/in the past 3 mons?: No - Infectious Disease Hx of Infectious Diseases: None - Cardiac Hx Hypertension: Yes - Pulmonary Hx Respiratory Disorders: No - Neurological Hx Neurological Disorder: No - HEENT Hx Blind: Yes (left eye, diminished vision right eye) Hx Glaucoma: Yes (both eyes) - Renal Hx Renal Disorder: No - Endocrine/Metabolic Hx Diabetes Mellitus Type 2: Yes - Hematological/Oncological Hx Blood Transfusions: No Hx Blood Transfusion Reaction: No - Integumentary Hx Dermatological Disorder: No - Musculoskeletal/Rheumatological Hx Falls: No - Gastrointestinal Hx Gastrointestinal Disorders: No - Genitourinary/Gynecological Hx Genitourinary Disorders: No - Psychiatric Hx Psychophysiologic Disorder: No Hx Substance Use: No - Past Surgical History Past Surgical History: Non-Contributing - Surgical History Hx Angioplasty: Yes Hx Coronary Stent: Yes (2 stents) - Anesthesia Hx Anesthesia: Yes Hx Anesthesia Reactions: No Hx Malignant Hyperthermia: No - Suicidal Assessment Feels Threatened In Home Enviroment: No Family/Social History - Physician Review Nursing Documentation Reviewed: Yes Family/Social History: No Known Family HX Smoking Status: Former Smoker Hx Alcohol Use: No Hx Substance Use: No Hx Substance Use Treatment: No Allergies/Home Meds Allergies/Adverse Reactions: Allergies No Known Allergies Allergy (Verified 05/29/17 15:21) Home Medications: Home Meds Medication Instructions Recorded Confirmed Aspirin [Ecotrin] 81 mg PO DAILY 05/26/17 05/29/17 Brimonidine 0.15% [Alphagan P 1 drop OD QID 05/26/17 05/29/17 0.15% Opht] Clopidogrel [Plavix] 75 mg PO DAILY 05/26/17 05/29/17 Dorzolamide HCl/Timolol Maleat 10 ml OD BID 05/26/17 05/29/17 [Dorzolamide-Timolol Eye Drops] Gemfibrozil [Lopid] 600 mg PO DAILY 05/26/17 05/29/17 Glyburide/Metformin HCl 2 each PO BID 05/26/17 05/29/17 [Glucovance 5-500 mg Tablet] Losartan [Cozaar] 100 mg PO DAILY 05/26/17 05/29/17 Metoprolol Tartrate [Lopressor] 100 mg PO BID 05/26/17 05/29/17 Pilocarpine 1% Opht [Pilocarpine 1 drop OD TID 05/26/17 05/29/17 HCl 15 Ml] Prednisolone Acetate [Omnipred 10 1 drop OS QID 05/26/17 05/29/17 ml] Travoprost [Travatan Z] 1 drop OD HS 05/26/17 05/29/17 acetaZOLAMIDE [Acetazolamide] 500 mg PO BID 05/26/17 05/29/17 Review of Systems - Review of Systems Constitutional: Normal Eyes: Normal ENT: Normal Respiratory: Normal Cardiovascular: Chest Pain Gastrointestinal: Normal Genitourinary Male: Normal Musculoskeletal: Normal Skin: Normal Neurological: Normal Endocrine: Normal Hemo/Lymphatic: Normal Psychiatric: Normal Physical Exam Vital Signs Reviewed: Yes Vital Signs Temp Pulse Resp BP Pulse Ox 05/29/17 15:30 121/86 05/29/17 15:08 97.5 F L 72 18 102/64 100 Temperature: Afebrile Blood Pressure: Normal Pulse: Regular Respiratory Rate: Normal Appearance: Positive for: Ill-Appearing Pain Distress: Moderate Mental Status: Positive for: Alert and Oriented X 3 - Systems Exam Head: Present: Atraumatic, Normocephalic Pupils: Present: PERRL Extroacular Muscles: Present: EOMI Conjunctiva: Present: Normal Ears: Present: Normal Mouth: Present: Moist Mucous Membranes Pharnyx: Present: Normal Nose (External): Present: Atraumatic Nose (Internal): Present: Normal Inspection Neck: Present: Normal Range of Motion Respiratory/Chest: Present: Clear to Auscultation, Good Air Exchange Cardiovascular: Present: Regular Rate and Rhythm Abdomen: No: Tenderness, Distention, Normal Bowel Sounds, Peritoneal Signs, Rebound, Guarding, McBurney's Point Tender, Rovsing's Sign Present, Hernias, Feeding Tubes, Ostomy Tubes, Mass/Organomegaly, Scars, Other Back: Present: Normal Inspection Upper Extremity: Present: Normal Inspection, Other (left upper extremity hand/ warm/sensation/cap refill/radial pulse.) Lower Extremity: Present: Normal Inspection Neurological: Present: GCS=15, CN II-XII Intact, Speech Normal, Motor Func Grossly Intact Skin: Present: Warm, Normal Color Psychiatric: Present: Alert, Oriented x 3, Normal Insight, Normal Concentration Medical Decision Making ED Course and Treatment: 66yoM, CAD, stent placement, on plavix which pt took and now having chest pain, sternal, radiation to both the upper extremities. no n/v/purvis/dizziness/sob/ abdomen pain/loss of limb function/travel/prior blood clots/prior cancer history. 05/29/17 15:27 05/29/17 15:31 d/w Dr. Jeffers cardiology who will dw Dr. Saul and reply. 05/29/17 15:45 d/w Dr. Jeffers who stated to call a heart alert and d/w Dr. Rowley. Dr. Rowley who stated paced rhythm, difficult to discern entirely. wait for labwork and discuss further with him. 05/29/17 15:36: Code Heart was called. 05/29/17 16:20 d/w Dr. Rowley who stated trop 5.19, hold of on cath procedure at this time, heparin gtt, nitroglycerin gtt and admit to the icu. CHEST X-RAY Dictator : Lauren Barth MD Report Date : 05/29/2017 16:15:20 IMPRESSION: No new infiltrate or CHF. No interval change. 05/29/17 16:57 pt went to laborer carpentry dock, Dr. Dietz cancelled cath procedure, due to location pt went to ICU and accepted by Dr. Green. paged Dr. Cooper to discuss admission. 05/29/17 17:14 dr. Cooper accepted patient. - Lab Interpretations Lab Results: 05/29/17 15:30 05/29/17 16:05 Lab Results 05/29/17 16:05: Sodium 141, Potassium 4.1, Chloride 110 H, Carbon Dioxide 18 L, Anion Gap 17, BUN 18, Creatinine 1.2, Est GFR ( Amer) > 60, Est GFR (Non- Af Amer) > 60, Random Glucose 238 H, Calcium 9.7, Magnesium 1.8, Total Bilirubin 0.4, AST 36, ALT 37, Alkaline Phosphatase 82, Lactate Dehydrogenase 738 H, Total Creatine Kinase 123, Troponin I 5.19 H* D, NT-Pro-B Natriuret Pep 1230 H, Total Protein 6.8, Albumin 3.7, Globulin 3.0, Albumin/Globulin Ratio 1.2 05/29/17 15:30: PT 11.5, INR 1.01, APTT 30.0 05/29/17 15:30: WBC 11.1 H, RBC 4.59, Hgb 12.9 L, Hct 39.9 L, MCV 86.9, MCH 28.1 , MCHC 32.3, RDW 14.8 H, Plt Count 308, MPV 10.3, Gran % 74.0 H, Lymph % (Auto) 12.8 L, Mcduffie % (Auto) 5.5, Eos % (Auto) 7.6 H, Baso % (Auto) 0.1, Gran # 8.23 H , Lymph # 1.4, Mcduffie # 0.6, Eos # 0.9 H, Baso # 0.01 I have reviewed the lab results: Yes (trop 5.19, wbc 11.1) - RAD Interpretation Radiology Orders: 05/29/17 15:21 CHEST PORTABLE [RAD] [employer] Senior Recruiter: ED Physician (chest xray no acute. similar to 05/24/17.) - EKG Interpretation Interpreted by ED Physician: Yes (paced rhythm, change from 05/26/17 in ii, iii, avf, v3 - v6.) Type: 12 lead EKG - Medication Orders Current Medication Orders: Heparin Sodium/Sodium Chloride (Heparin 93459 Units/250ml 1/2 Normal Saline) 25 ,000 units in 250 mls @ 9.348 mls/hr IV .Q24H BRITANY; 12 UNITS/KG/HR PRN Reason: Protocol Nitroglycerin/Dextrose (Nitroglycerin 50 Mg/250 Ml D5w) 50 mg in 250 mls @ 1.5 mls/hr IV .Q24H PRN; Protocol; 5 MCG/MIN PRN Reason: chest pain Insulin Human Regular (Humulin R Med) 0 units SC ACHS BRITANY PRN Reason: Protocol Pantoprazole Sodium (Protonix Ec Tab) 40 mg PO ACB BRITANY Discontinued Medications Aspirin (Aspirin Chewable) 324 mg PO STAT STA Stop: 05/29/17 15:47 Last Admin: 05/29/17 15:54 Dose: Heparin Sodium (Porcine) (Heparin) 4,000 units IV ONCE ONE PRN Reason: Protocol Stop: 05/29/17 17:01 Morphine Sulfate (Morphine) 2 mg IVP STAT STA Stop: 05/29/17 15:23 Last Admin: 05/29/17 15:47 Dose: 2 mg [facility] Pain Assessment Document 05/29/17 15:47 SF (Rec: 05/29/17 15:48 SF [id number]) Pain Reassessment Is this a pain reassessment? Yes Sleep Is patient sleeping during reassessment? No IVP Administration Document 05/29/17 15:47 SF (Rec: 05/29/17 15:48 SF [id number]) Charges for Administration # of IVP Administrations 1 Re-Assess: [facility] Pain Assessment Document 05/29/17 16:47 RAMOM (Rec: 05/29/17 17:08 RAMOM [facility] [place] [employer]) Pain Reassessment Is this a pain reassessment? No Sleep Is patient sleeping during reassessment? No Presence of Pain Presence of Pain No Ondansetron HCl (Zofran Inj) 4 mg IVP STAT STA Stop: 05/29/17 15:23 Last Admin: 05/29/17 15:47 Dose: 4 mg IVP Administration Document 05/29/17 15:47 SF (Rec: 05/29/17 15:47 SF [id number]) Charges for Administration # of IVP Administrations 1 Disposition/Present on Arrival - Present on Arrival Any Indicators Present on Arrival: No History of DVT/PE: No History of Uncontrolled Diabetes: Yes Urinary Catheter: No History of Decub. Ulcer: No History Surgical Site Infection Following: None - Disposition Have Diagnosis and Disposition been Completed?: Yes Diagnosis: Chest pain, Elevated troponin, AMI (acute myocardial infarction) Disposition: HOSPITALIZED Disposition Time: 17:15 Patient Plan: Admission, ICU Condition: SERIOUS
[2017-05-29 15:47] LABS: BASO # 0.01 K/mm3 (0.0-2.0); BASO % 0.1 % (0.0-3.0); EOS # 0.9 (0.0-0.7); EOS % 7.6 % (1.5-5.0); GRAN # 8.23 (1.4-6.5); HEMOGLOBIN 12.9 g/dL (14.0-18.0); LYMPH # 1.4 (1.2-3.4); LYMPH % 12.8 % (22.0-35.0); MEAN CELL VOLUME 86.9 fl (80.0-105.0); MEAN CORPUSCULAR HEMOGLOBIN 28.1 pg (25.0-35.0); MEAN CORPUSCULAR HGB CONC 32.3 g/dl (31.0-37.0); MEAN PLATELET VOLUME 10.3 fl (7.0-11.0); MONO # 0.6 (0.1-0.6); MONO % 5.5 % (1.0-6.0); RBC 4.59 10^6/uL (3.5-6.1); RED CELL DISTRIBUTION WIDTH 14.8 % (11.5-14.5); WHITE BLOOD COUNT 11.1 10^3/ul (4.5-11.0)
[2017-05-29 16:03] LABS: ALB/GLOB RATIO 1.2 (1.1-1.8); ALBUMIN 3.7 g/dL (3.0-4.8); ALT/SGPT 37 U/L (7-56); AST/SGOT 36 U/L (17-59); BLOOD UREA NITROGEN 18 mg/dL (7-21); CALCIUM 9.7 mg/dL (8.4-10.5); MAGNESIUM 1.8 mg/dL (1.7-2.2)
[2017-05-29 16:06] LABS: GFR AFRICAN-AMERICAN > 60; GFR NON-AFRICAN AMERICAN > 60
[2017-05-29] MEDS ORDERED: Phenylephrine 10 mg/ml Inj ONE ×2 (16:11→19:10)
[2017-05-29] MEDS ORDERED: Midazolam 2 MG/2 ML VIAL ONE ×2 (16:11→19:11)
[2017-05-29] MEDS ORDERED: Lidocaine 2% Inj (20ml) ONE ×2 (16:11→19:10)
[2017-05-29] MEDS ORDERED: D5W IV ONE (16:12)
[2017-05-29] MEDS ORDERED: NITROGLYCERIN IV ONE (16:12)
[2017-05-29] MEDS ORDERED: Iodixanol 320 MG/ML 200 ML BOTTLE IV ONE ×2 (16:12→19:11)
[2017-05-29] MEDS ORDERED: Iohexol 350mgl/ml 50 ML ONE ×2 (16:12→19:11)
[2017-05-29] MEDS ORDERED: HEPARIN SODIUM/NS 2,000 ML IV ONE ×2 (16:13→19:11)
[2017-05-29 16:15] LABS: B-TYPE NATRIURETIC PEPTIDE 1230 pg/mL (0-450); TROPONIN I 5.19 ng/mL
--- NOTE | 2017-05-29 16:16 | RAD ---
HISTORY: 66yoM, chest pain COMPARISON: 05/24/2017 FINDINGS: LUNGS: No active pulmonary disease. PLEURA: No significant pleural effusion identified, no pneumothorax apparent. CARDIOVASCULAR: Normal. OSSEOUS STRUCTURES: No significant abnormalities. VISUALIZED UPPER ABDOMEN: Normal. OTHER FINDINGS: Left pacemaker is unchanged. IMPRESSION: No new infiltrate or CHF. No interval change.
[2017-05-29 16:22] LABS: INR 1.01 (0.93-1.08); PROTHROMBIN TIME 11.5 SECONDS (9.4-12.5)
[2017-05-29] MEDS ORDERED: Nitroglycerin 50mg in D5W 50 MG/250 ML BOTTLE IV PRN ×2 (16:24→17:08)
[2017-05-29] MEDS ORDERED: Heparin25000 units/250ml 1/2NS 25,000 UNITS/250 ML BAG IV SCH ×2 (16:30→17:00)
--- NOTE | 2017-05-29 17:53 | CP.PCM.CON ---
History of Present Illness - History of Present Illness History of Present Illness: Critical Care Consult Note HPI Patient is 66yo male with PMHx of CAD with stent, HTN, HLD, DM, presents with chest pain. Pt reports chest pain started yesterday, mid sternal, non radiating , moderate intensity, alleviated with rest, and nitro, without aggravating factors. Denies fever, chills, cough, sob, palpitations, CORRIGAN, dizziness. Pt noted to have AV paced rhythm on EKG in the ER, troponin 5, PCI carton forming machine tender consulted, no plan for cath for now. Patient started on heparin, and nitro drip. PMHx as above PSHx as above Allergies NKDA Meds as per EMR ROS as above FHx NC Review of Systems - Review of Systems Review of Systems: as above Past Patient History - Infectious Disease Hx of Infectious Diseases: None - Past Social History Smoking Status: Former Smoker - CARDIAC Hx Hypertension: Yes - PULMONARY Hx Respiratory Disorders: No - NEUROLOGICAL Hx Neurological Disorder: No - HEENT Hx Blind: Yes (left eye, diminished vision right eye) Hx Glaucoma: Yes (both eyes) - RENAL Hx Chronic Kidney Disease: No - ENDOCRINE/METABOLIC Hx Diabetes Mellitus Type 2: Yes - HEMATOLOGICAL/ONCOLOGICAL Hx Blood Transfusions: No Hx Blood Transfusion Reaction: No - INTEGUMENTARY Hx Dermatological Problems: No - MUSCULOSKELETAL/RHEUMATOLOGICAL Hx Falls: No - GASTROINTESTINAL Hx Gastrointestinal Disorders: No - GENITOURINARY/GYNECOLOGICAL Hx Genitourinary Disorders: No - PSYCHIATRIC Hx Psychophysiologic Disorder: No Hx Substance Use: No - SURGICAL HISTORY Hx Angioplasty: Yes Hx Coronary Stent: Yes (2 stents) - ANESTHESIA Hx Anesthesia: Yes Hx Anesthesia Reactions: No Hx Malignant Hyperthermia: No Meds Allergies/Adverse Reactions: Allergies Allergy/AdvReac Type Severity Reaction Status Date / Time No Known Allergies Allergy Verified 05/29/17 15:21 - Medications Medications: Current Medications Acetazolamide (Diamox Sequels 500 Mg Sr Cap) 500 mg PO BID [facility] Aspirin (Ecotrin) 81 mg PO DAILY BRITANY Atorvastatin Calcium (Lipitor) 40 mg PO DIN BRITANY Brimonidine Tartrate (Alphagan P 0.15% Opht) 1 drop OD QID BR[facility]ANY Clopidogrel Bisulfate (Plavix) 75 mg PO DAILY [facility] Dorzolamide/Timolol (Cosopt 2%-0.5% Opht) 0.05 drop OD BID BRITANY Gemfibrozil (Lopid) 600 mg PO DAILY [facility] Heparin Sodium/Sodium Chloride (Heparin 10547 Units/250ml 1/2 Normal Saline) 25 ,000 units in 250 mls @ 9.348 mls/hr IV .Q24H BRITANY; 12 UNITS/KG/HR PRN Reason: Protocol Last Admin: 05/29/17 17:25 Dose: 12 units/kg/hr, 9.348 mls/hr Nitroglycerin/Dextrose (Nitroglycerin 50 Mg/250 Ml D5w) 50 mg in 250 mls @ 1.5 mls/hr IV .Q24H PRN; Protocol; 5 MCG/MIN PRN Reason: chest pain Last Admin: 05/29/17 17:17 Dose: 10 mcg/min, 3 mls/hr Insulin Human Regular (Humulin R Med) 0 units SC Q6H BRITANY PRN Reason: Protocol Latanoprost (Xalatan Opht) 1 ml OD HS [facility] Losartan Potassium (Cozaar) 100 mg PO DAILY [facility] Metoprolol Tartrate (Lopressor) 100 mg PO BRKDIN [facility] Pantoprazole Sodium (Protonix Ec Tab) 40 mg PO ACB BRITANY Pilocarpine HCl (Isopto Carpine 1% Opht Soln) 0.05 ml OD TID [facility] Prednisolone Acetate (Pred Forte 1% Opht Susp) 0.05 ml OS QID [facility] Physical Exam - Constitutional Appears: Well, Non-toxic, No Acute Distress - Head Exam Head Exam: NORMAL INSPECTION - ENT Exam ENT Exam: Mucous Membranes Moist - Neck Exam Neck exam: Positive for: Full Rom - Respiratory Exam Respiratory Exam: Clear to Auscultation Bilateral, NORMAL BREATHING PATTERN - Cardiovascular Exam Cardiovascular Exam: REGULAR RHYTHM, +S1, +S2 - GI/Abdominal Exam GI & Abdominal Exam: Normal Bowel Sounds, Soft - Extremities Exam Extremities exam: Positive for: normal inspection Results - Vital Signs Recent Vital Signs: Last Vital Signs Temp 97.5 F L 05/29/17 15:08 Pulse 69 05/29/17 17:29 Resp 18 05/29/17 15:08 BP 131/72 05/29/17 17:29 Pulse Ox 100 05/29/17 15:08 - Labs Result Diagrams: 05/29/17 15:30 05/29/17 16:05 Assessment & Plan - Assessment and Plan (Free Text) Assessment: 66yo male a/w acute AR Acute AR/NSTEMI HTN HLD DM Glaucoma Recommend: - supp o2 as needed - hummel culture - BP control - ASA, Plavix, Statin - Heparin Drip - nitro drip as per cardiology - trend troponin - follow up cardiology - monitor electrolytes - Beta yonny - ECHO - Heparin drip - GI ppx, PPI - DVT ppx, Heparin - Monitor in CCU
[2017-05-29] MEDS ORDERED: Non Formulary Medication (Metoprolol Tartrate [Lopressor] 100 MG) PO SCH (18:00)
[2017-05-29] MEDS ORDERED: PrednisoLONE 1% Opht Susp(5 ml) OS SCH (18:00)
[2017-05-29] MEDS ORDERED: acetaZOLAMIDE 500 mg SR Cap PO SCH (18:00)
[2017-05-29] MEDS ORDERED: Dorzolamide 2%/Timolol 0.5% 100 DROP/10 ML BOTTLE OD SCH (18:00)
[2017-05-29] MEDS ORDERED: Pilocarpine 1% Opht (15ml) OD SCH (18:00)
[2017-05-29] MEDS: Insulin Reg-MEDIUM-Coverage SC SCH (18:01)
[2017-05-29] MEDS: Brimonidine 0.15% 50 DROP/5 ML BOTTLE OD SCH ×2 (18:16→22:04)
[2017-05-29 18:18] VITALS: BMI 25.7
[2017-05-29] MEDS ORDERED: Eptifibatide 20 mg/10mL Inj IVP ONE (19:36)
[2017-05-29] MEDS ORDERED: Eptifibatide 0.75 mg/ml 75 MG/100 ML BOTTLE IV ONE (19:44)
[2017-05-29] MEDS: Eptifibatide 0.75 mg/ml 75 MG/100 ML BOTTLE IV SCH (19:45)
[2017-05-29] MEDS ORDERED: Iodixanol 320 mg/ml 150 ml Bottle IV ONE (19:53)
[2017-05-29] MEDS ORDERED: Latanoprost 2.5 ml Opht Soln OD SCH (22:00)
[2017-05-29] MEDS ORDERED: Insulin Lispro (humaLOG) LOW Coverage SC SCH (22:00)
[2017-05-29] MEDS ORDERED: Insulin Reg-MEDIUM-Coverage SC SCH (22:00)
[2017-05-29] MEDS: PrednisoLONE 1% Opht Susp(5 ml) OS SCH (22:03)
--- NOTE | 2017-05-29 23:18 | PN ---
DATE: ADDENDUM When I saw the patient in the ICU, I asked for a stat EKG as the patient was in sinus rhythm. After the completion of my EKG was done and the patient was found to have anterolateral ST elevation consistent with acute myocardial injury. I discussed the case with both Dr. Saul and Dr. Rowley and code heart was activated. Dr. Rowley will perform the procedure of emergency cardiac catheterization. I discussed the issue with the patient's family at the bedside. Malcom Gonzalez MD
[2017-05-30] MEDS: Insulin Reg-MEDIUM-Coverage SC SCH ×5 (01:10→21:51)
--- NOTE | 2017-05-30 04:58 | CON ---
DATE: REASON FOR CONSULTATION: Chest pain. HISTORY OF PRESENT ILLNESS: The patient is a 66-year-old Citizen Of [place] male who has a history of hypertension and diabetes mellitus, history of coronary artery disease who underwent on 05/25/2017, left heart catheterization which revealed 3-vessel disease. The patient underwent successful PTCA with drug-eluting stent to the mid LAD and successful PTCA with drug-eluting stent to the mid circumflex artery as well as balloon angioplasty to the second obtuse marginal branch and the patient is to be scheduled for PCI to right coronary artery in 2 weeks which was scheduled for 06/21/2017. The patient started experiencing chest pain yesterday after he had a shower, he experienced severe retrosternal chest pain, but he was able to tolerated and stay at home. This morning, the patient started to experience recurrent retrosternal chest pain, which was heaviness in nature; however, the patient tried to wait more time until eventually presented to the Emergency Room this afternoon. Initially, I was notified by the ER physician that the patient has paced rhythm and is in significant chest pain and after discussing the case with Dr. Saul, I recommended contacting the "heart" manager paper Dr. Rowley who discussed the case with Emergency Room physician and decision was made to admit the patient to ICU for medical therapy overnight. Upon my arrival to the ICU, the patient is currently chest pain free. 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 SOCIAL HISTORY: Nonsmoker. MEDICATIONS: The patient is currently on IV heparin infusion and therapeutic regimen following an intravenous bolus. The patient is on Cozaar 100 mg once a day, aspirin 81 mg once a day, Lipitor 20 mg once a day and Plavix 75 mg once a day. REVIEW OF SYSTEMS: No nausea or vomiting. No fever or chills. No hematemesis or melena. PHYSICAL EXAMINATION GENERAL: The patient is an elderly male who does not appear to be in acute distress. VITAL SIGNS: Blood pressure 117/70, heart rate 63, temperature 98.4 and respirations 18. HEENT: Normocephalic. CHEST: Bilateral rhonchi. HEART: S1 and S2 regular. ABDOMEN: Soft. EXTREMITIES: Trace leg edema. LABORATORY DATA: Hemoglobin and hematocrit 12.9 and 39.5, white count 11.1 and platelet count 308,000. SMA-7; sodium 141, potassium 4.1, chloride 110, CO2 of 18, glucose 238, BUN 18, creatinine 1.2, troponin is 5.19 and pro-BNP 1230. PT, PTT and INR are within normal limit. EKG revealed ventricular pacemaker rhythm and I did ask for a stat EKG as the patient is on monitor is in sinus rhythm. Chest x-ray revealed normal cardiac silhouette. No infiltrates or effusion. Dual chamber pacemaker. ASSESSMENT: 1. Chest pain with acute myocardial infarction. 2. Status post 2 vessel stenting to the left anterior descending and circumflex artery with balloon angioplasty to the second obtuse marginal branch with significant right coronary artery disease. 3. Hypertension and diabetes mellitus. RECOMMENDATIONS: Case was discussed at length with the patient and his family. The patient would be maintained on IV heparin, IV . The patient will be maintained on aspirin, Plavix, Lipitor, Lopid and Lopressor therapy. The plan is to perform PCI on Wednesday by Dr. Saul, however, at anytime the patient develops chest pain, sustained ventricular arrhythmia or intractable CHF then PCI will be considered on an urgent basis. Malcom Gonzalez MD
[2017-05-30] MEDS: Eptifibatide 0.75 mg/ml 75 MG/100 ML BOTTLE IV SCH ×2 (05:22→11:28)
[2017-05-30 05:54] LABS: EOS # 0.6 (0.0-0.7); EOS % 5.2 % (1.5-5.0); GRAN # 8.26 (1.4-6.5); GRAN % 75.3 % (50.0-68.0); HEMOGLOBIN 12.2 g/dL (14.0-18.0); LYMPH # 1.1 (1.2-3.4); LYMPH % 9.9 % (22.0-35.0); MEAN CELL VOLUME 86.9 fl (80.0-105.0); MEAN CORPUSCULAR HGB CONC 32.3 g/dl (31.0-37.0); MEAN PLATELET VOLUME 9.9 fl (7.0-11.0); MONO # 1.1 (0.1-0.6); MONO % 9.6 % (1.0-6.0); RBC 4.35 10^6/uL (3.5-6.1); RED CELL DISTRIBUTION WIDTH 14.8 % (11.5-14.5)
[2017-05-30 06:09] LABS: ALBUMIN 3.6 g/dL (3.0-4.8); ALT/SGPT 55 U/L (7-56); AST/SGOT 199 U/L (17-59); BLOOD UREA NITROGEN 14 mg/dL (7-21); CALCIUM 9.5 mg/dL (8.4-10.5); GFR AFRICAN-AMERICAN > 60; GFR NON-AFRICAN AMERICAN > 60
[2017-05-30 06:21] LABS: INR 1.03 (0.93-1.08); PARTIAL THROMBOPLASTIN TIME 29.7 Seconds (25.1-36.5); PROTHROMBIN TIME 11.8 SECONDS (9.4-12.5)
[2017-05-30 06:29] LABS: CK MB% 3.9 % (2.5-3.0); CK-MB 56.2 ng/mL (0.0-3.6)
[2017-05-30] MEDS: Dorzolamide 2%/Timolol 0.5% 100 DROP/10 ML BOTTLE OD SCH ×3 (08:00→20:20)
[2017-05-30] MEDS: Pantoprazole 40 mg EC Tab PO SCH (08:05)
[2017-05-30] MEDS: Pilocarpine 1% Opht (15ml) OD SCH ×4 (08:10→16:17)
[2017-05-30] MEDS: Brimonidine 0.15% 50 DROP/5 ML BOTTLE OD SCH ×5 (08:37→20:20)
[2017-05-30] MEDS: PrednisoLONE 1% Opht Susp(5 ml) OS SCH ×5 (08:43→20:19)
[2017-05-30] MEDS ORDERED: Pilocarpine 1% Opht (15ml) OD SCH ×2 (09:49→10:00)
[2017-05-30] MEDS ORDERED: Dorzolamide 2%/Timolol 0.5% 100 DROP/10 ML BOTTLE OD SCH (09:49)
[2017-05-30] MEDS ORDERED: PrednisoLONE 1% Opht Susp(5 ml) OS SCH ×2 (09:49→10:00)
[2017-05-30] MEDS ORDERED: Brimonidine 0.15% 50 DROP/5 ML BOTTLE OD SCH ×2 (09:49→10:00)
--- NOTE | 2017-05-30 10:20 | CARD ---
APPROVED REPORT EKG Measurement Heart [id number] <Conclusion> AV sequential or dual chamber electronic pacemaker: 100 % AV Paced
--- NOTE | 2017-05-30 10:22 | CARD ---
APPROVED REPORT EKG Measurement Heart [id number] <Conclusion> Electronic atrial pacemaker Infero-lateral infarct, possibly acute ACUTE VA
--- NOTE | 2017-05-30 10:35 | CARD ---
APPROVED REPORT EKG Measurement Heart [id number] <Conclusion> Electronic atrial pacemaker 100 % A. Paced Evolving IMI
--- NOTE | 2017-05-30 10:35 | CP.PCM.PN ---
Subjective - Date & Time of Evaluation Date of Evaluation: 05/30/17 Time of Evaluation: 07:30 - Subjective Subjective: Pt seen and examined, s/p cardiac cath yesterday with stent, doing well. Objective - Vital Signs/Intake and Output Vital Signs (last 24 hours): Temp Pulse Resp BP Pulse Ox 97.8 F 68 16 128/77 100 05/30/17 02:40 05/30/17 08:05 05/30/17 06:50 05/30/17 08:05 05/30/17 06:50 Intake and Output: 05/30/17 05/30/17 06:59 18:59 Intake Total 1120 Output Total 1200 Balance -80 - Medications Medications: Current Medications Acetaminophen (Tylenol 325mg Tab) 650 mg PO Q6 PRN PRN Reason: Fever >100.4 F Acetazolamide (Diamox 250 Mg Tab) 500 mg PO BID [facility] Aspirin (Ecotrin) 81 mg PO DAILY [facility] Last Admin: 05/30/17 09:50 Dose: 81 mg Atorvastatin Calcium (Lipitor) 40 mg PO DIN [facility] Brimonidine Tartrate (Alphagan P 0.15% Opht) 1 drop OD QID [facility] Docusate Sodium (Colace) 100 mg PO BID [facility] Last Admin: 05/30/17 09:50 Dose: 100 mg Dorzolamide/Timolol (Cosopt 2%-0.5% Opht) 1 drop OD BID [facility] Gemfibrozil (Lopid) 600 mg PO DAILY [facility] Last Admin: 05/30/17 09:50 Dose: 600 mg Eptifibatide (Integrilin) 75 mg in 100 mls @ 12.265 mls/hr IV .Q8H10M BRITANY; 2 MCG/KG/MIN PRN Reason: Protocol Stop: 05/30/17 13:45 Last Admin: 05/30/17 05:22 Dose: 12.265 mls/hr Insulin Human Regular (Humulin R Med) 0 units SC Q6H [facility] PRN Reason: Protocol Last Admin: 05/30/17 07:03 Dose: Not Given Latanoprost (Xalatan Opht) 1 ml OD HS [facility] Losartan Potassium (Cozaar) 100 mg PO DAILY [facility] Last Admin: 05/30/17 09:50 Dose: 100 mg Metoprolol Tartrate (Lopressor) 100 mg PO BRKDIN [facility] Last Admin: 05/30/17 08:05 Dose: 100 mg Pantoprazole Sodium (Protonix Ec Tab) 40 mg PO ACB [facility] Last Admin: 05/30/17 08:05 Dose: 40 mg Pilocarpine HCl (Isopto Carpine 1% Opht Soln) 0 ml OD TID [facility] Prednisolone Acetate (Pred Forte 1% Opht Susp) 0 ml OS QID [facility] Ticagrelor (Brilinta) 90 mg PO BID [facility] Last Admin: 05/30/17 09:49 Dose: 90 mg - Labs Labs: 05/30/17 05:10 05/30/17 05:10 PT 11.8 SECONDS (9.4-12.5) 05/30/17 05:10 INR 1.03 (0.93-1.08) 05/30/17 05:10 APTT 29.7 Seconds (25.1-36.5) 05/30/17 05:10 - Constitutional Appears: Non-toxic, No Acute Distress - Eye Exam Eye Exam: Normal appearance - ENT Exam ENT Exam: Mucous Membranes Moist - Respiratory Exam Respiratory Exam: Clear to Ausculation Bilateral, NORMAL BREATHING PATTERN - Cardiovascular Exam Cardiovascular Exam: REGULAR RHYTHM, +S1, +S2 - GI/Abdominal Exam GI & Abdominal Exam: Soft, Normal Bowel Sounds - Extremities Exam Extremities Exam: Full ROM, Normal Inspection - Neurological Exam Neurological Exam: Alert, Awake, Oriented x3 Assessment and Plan - Assessment and Plan (Free Text) Assessment: 66yo male a/w acute DC s/p cardiac PCI Acute DC s/p cardiac PCI HTN HLD DM Glaucoma Recommend: - supp o2 as needed - hummel culture - BP control - ASA,Brillinta, Statin - HeInegrillin drip as per cardiology - nitro PRN - follow up cardiology - monitor electrolytes - Beta yonny - ECHO - GI ppx, PPI - DVT ppx, Heparin - Monitor in CCU
[2017-05-30 18:42] LABS: PH,URINE 7.5 (4.7-8.0); URINE BILIRUBIN NEGATIVE (NEGATIVE); URINE BLOOD NEGATIVE (NEGATIVE); URINE GLUCOSE (UA) NEGATIVE (NEGATIVE); URINE LEUKOCYTE ESTERASE NEGATIVE Leu/uL (NEGATIVE); URINE NITRATE NEGATIVE (NEGATIVE); URINE PROTEIN TRACE mg/dL (<30 mg/dL)
[2017-05-30 18:43] LABS: URINE COLOR YELLOW (YELLOW)
--- NOTE | 2017-05-30 18:47 | PN ---
DATE: SUBJECTIVE: Yesterday, Code heart was activated and the finding was total occlusion of the mid circumflex artery and the previously placed stent, PCI to that lesion was performed with another proximal stenting; however, with residual sluggish flow and occlusion and previously dilated second obtuse marginal branch and addition of successful PCI stenting to distal artery was performed. The patient is currently in ICU, chest pain free and Integrilin infusion at 1:30 p.m. No reported ventricular arrhythmia. PHYSICAL EXAMINATION: VITAL SIGNS: Blood pressure 122/77, heart rate 68, respirations 18, and temperature 97.8. HEENT: Left eye blindness and outward deviation with corneal opacity. NECK: No JVD. CHEST: Minimal rhonchi. HEART: S1 and S2 regular. EXTREMITIES: No hematoma. LABORATORY DATA: Hemoglobin and hematocrit 12.2 and 37.8, white count and platelet count are within normal limits. Today's SMA-7 is within normal limits except for chloride of 112, carbon dioxide of 19, and today's troponin is 66. ASSESSMENT: 1. Status post acute anterior wall myocardial infarction with stenting to circumflex artery, as well as distal right coronary artery, most likely in-stent thrombosis of the circumflex stent placed on 05/25/2017. 2. Mildly depressed systolic function with inferior wall hypokinesis. 3. Diabetes mellitus. RECOMMENDATIONS: Continue current Brilinta 90 mg twice a day, Cozaar 100 mg once a day, Diamox 500 mg once a day, aspirin 81 mg once a day, Lipitor 40 mg once a day, Lopid 600 mg once a day, and Lopressor 100 mg twice a day. Malcom Gonzalez MD
[2017-05-30 19:04] LABS: URINE APPEARANCE SL CLOUDY (CLEAR); URINE RBC NEGATIVE /hpf (0-2)
[2017-05-30 19:05] LABS: URINE AMORPHOUS SEDIMENT MODERATE; URINE BACTERIA MOD (NEG)
[2017-05-30] MEDS: Latanoprost 2.5 ml Opht Soln OD SCH (21:49)
--- NOTE | 2017-05-31 05:59 | HP ---
CHIEF COMPLAINT AND HISTORY OF PRESENT ILLNESS: This is a 66-year-old male, who is coming into the hospital with chest pain, the patient has a past medical history of hypertension, diabetes, glaucoma. He had a cath done about one week ago and was found to have coronary artery disease. The patient underwent PTCA with a drug-eluting stent in the LAD. The patient also had a drug-eluting stent in the mid circumflex artery. He started having chest pain overnight and came in for further evaluation. The patient was admitted to the hospital with a code heart. The patient had emergent PCI done. He is currently in the ICU, he is comfortable, chest pain free. He said initially the pain was fairly significant about 6/10, substernal. He had difficulty in sleeping. He says he is currently feeling well. He had not taken aspirin. When he was at home, he was taking his other medications including Plavix. He has no nausea. No vomiting. No dysuria. No frequency. No nocturia. PAST MEDICAL HISTORY: 1. Coronary artery disease, status post stent x3. 2. Non ST-elevation [place]. 3. Diabetes type 2. 4. Pacemaker. 5. Hypertension. 6. Glaucoma, bilateral eyes. 7. Arthritis. ALLERGIES: NO KNOWN DRUG ALLERGIES. HOME MEDICATIONS: Have been reviewed on the [facility]. SOCIAL HISTORY: He does not smoke or drink. 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 PHYSICAL EXAMINATION: VITAL SIGNS: He has a temperature of 98.7, pulse of 65, blood pressure 113/85, respirations 14, and O2 saturation is 100%. Height is 5 feet 8 inches, weight is 169 pounds, BMI is 25. GENERAL: The patient lying in bed, uncomfortable, and in no acute distress. HEENT: Atraumatic and normocephalic. Anicteric sclerae. Moist mucosa. Lyon conjunctivae. No oral lesions. NECK: No JVD, anterior and posterior adenopathy, thyromegaly, or bruits. CARDIOVASCULAR: S1 and S2 regular. No murmur, rubs, or gallop. LUNGS: Clear to auscultation bilaterally. No wheezes, rales, or rhonchi. ABDOMEN: Bowel sounds are positive. Soft, nontender and nondistended. No hepatosplenomegaly. No rebound and no guarding EXTREMITIES: No cyanosis, clubbing, or edema. NEUROLOGIC: No facial asymmetry. Tongue is midline. No uvula deviation. Power is 5/5 upper extremity and lower extremity. Sensation intact in upper extremity and lower extremity. PSYCHIATRIC: She is awake, alert and oriented x3. No anxiety or depression. She has normal affect. GENITOURINARY: No CVA tenderness. VASCULAR: 2+ pulses in the carotid pulses and pedal pulses. SKIN: No erythema or nodules SPINE: Shows normal curvature. LABORATORY DATA: Have been reviewed. White count of 11.1. He had troponin initially at 5.1, then repeat is 6.6. DIAGNOSTIC DATA: Chest x-ray shows no new infiltrates or CHF. EKG done shows electronic atrial pacer, there is inferolateral infarct ASSESSMENT: 1. Non ST-elevation myocardial infarction. 2. Diabetes type 2. 3. Pacemaker. 4. Hypertension. 5. Glaucoma. 6. Arthritis. 7. Coronary artery disease. PLAN: The patient had a PCI emergently that was done. He is comfortable. He is currently on metoprolol. He is receiving Lipitor for dyslipidemia. The patient is on insulin sliding scale. He is on Diamox for his glaucoma. He is also on eyedrops. The patient is on Colace for constipation. He is going to continue his Lopid for his cholesterol. He is being followed by Cardiology. He currently is in the ICU. Laith Loredo MD
[2017-05-31 07:11] LABS: BASO # 0.01 K/mm3 (0.0-2.0); BASO % 0.1 % (0.0-3.0); EOS # 0.6 (0.0-0.7); EOS % 6.5 % (1.5-5.0); GRAN # 6.33 (1.4-6.5); GRAN % 65.1 % (50.0-68.0); HEMOGLOBIN 11.2 g/dL (14.0-18.0); LYMPH # 1.7 (1.2-3.4); MEAN CELL VOLUME 87.3 fl (80.0-105.0); MEAN CORPUSCULAR HEMOGLOBIN 27.4 pg (25.0-35.0); MEAN CORPUSCULAR HGB CONC 31.4 g/dl (31.0-37.0); MONO # 1.1 (0.1-0.6); MONO % 11.3 % (1.0-6.0); RBC 4.09 10^6/uL (3.5-6.1); RED CELL DISTRIBUTION WIDTH 14.8 % (11.5-14.5); WHITE BLOOD COUNT 9.7 10^3/ul (4.5-11.0)
[2017-05-31 07:32] LABS: ALBUMIN 3.4 g/dL (3.0-4.8); CALCIUM 9.2 mg/dL (8.4-10.5)
[2017-05-31 07:44] LABS: INR 1.12 (0.93-1.08); PARTIAL THROMBOPLASTIN TIME 31.9 Seconds (25.1-36.5); PROTHROMBIN TIME 12.9 SECONDS (9.4-12.5)
[2017-05-31 08:01] VITALS: O2SAT 100
[2017-05-31] MEDS: Pantoprazole 40 mg EC Tab PO SCH (08:04)
[2017-05-31] MEDS: Pilocarpine 1% Opht (15ml) OD SCH ×3 (08:06→18:42)
[2017-05-31] MEDS: Dorzolamide 2%/Timolol 0.5% 100 DROP/10 ML BOTTLE OD SCH ×2 (08:06→19:00)
[2017-05-31] MEDS: Brimonidine 0.15% 50 DROP/5 ML BOTTLE OD SCH ×4 (08:08→20:00)
[2017-05-31] MEDS: PrednisoLONE 1% Opht Susp(5 ml) OS SCH ×4 (08:09→20:00)
[2017-05-31] MEDS: Insulin Reg-MEDIUM-Coverage SC SCH ×4 (08:12→21:27)
[2017-05-31] MEDS ORDERED: POLYETHYLENE GLYCOL 3350 17 GM/Dose PACKET PO ONE (09:56)
[2017-05-31] MEDS ORDERED: Potassium Chloride 20 mEq ER Tab PO ONE (10:49)
--- NOTE | 2017-05-31 18:47 | PN ---
DATE: 05/31/2017 REASON FOR CONSULTATION AND FOLLOWUP: Status post code STEMI, status post PTCA of circ and RCA on 05/31/2017. OBJECTIVE: GENERAL: The patient denies any chest pain, shortness of breath, or any palpation. Feels better, wanted to go home. VITAL SIGNS: As follows, temperature afebrile, heart rate 63, blood pressure 120/64. HEENT: PERRLA intact. NECK: Supple. No carotid bruits or thyromegaly. CHEST: Clear to auscultation. HEART: S1 and S2 regular. ABDOMEN: Soft. EXTREMITIES: Clubbing and cyanosis negative. LABORATORY DATA: Blood workup as follows; WBC , hemoglobin 11.7, hematocrit 35.7, platelet count 283. Chemistry shows sodium 139, potassium 3.5, chloride 101.2, carbon dioxide 19, anion gap of 11, BUN 17, creatinine 1.6. IMPRESSION: Status post code ST elevation myocardial infarction, status post percutaneous coronary intervention of circumflex, status post percutaneous coronary intervention of right coronary artery. Prior to that, the patient had a percutaneous coronary intervention of left anterior descending and circumflex probably secondary to stent thrombosis, diabetes, hypertension, hyperlipidemia. RECOMMENDATIONS: We will get CPK, troponin to find a trend. Get echo to assess LV function. Continue aspirin. Continue Brilinta. Switch over from Plavix to Brilinta. Cutdown the losartan to 50 because the patient is running low blood pressure. Continue gemfibrozil. Continue atorvastatin. Ambulate. Possible discharge home tomorrow. We will cut down the losartan to 25 mg because the patient is running low blood pressure. Continue beta yonny as blood pressure is tolerated. We will also cutdown to metoprolol 125 b.i.d. from 125 b.i.d. and we will decrease losartan to 25 mg from tomorrow. Transfer to telemetry. Possible discharge home tomorrow. Thank you Dr. Loredo for providing us the opportunity in taking care of the patient, Joseph Jaeger. We will follow with you. Jaylene Saul MD
--- NOTE | 2017-05-31 19:16 | CARD ---
APPROVED REPORT EXAM: Two-dimensional and M-mode echocardiogram with Doppler and color Doppler. INDICATION Non STEMI 2D DIMENSIONS Left Atrium (2D)3.8 (1.6-4.0cm)IVSd1.4 (0.7-1.1cm) LVDd4.7 (3.9-5.9cm)PWd1.4 (0.7-1.1cm) LVDs3.6 (2.5-4.0cm)FS (%) 23.9 % LVEF (%)47.7 (>50%) M-Mode DIMENSIONS Aortic Root2.70 (2.2-3.7cm)Aortic Cusp Exc.1.90 (1.5-2.0cm) Aortic Valve AoV Peak Tzzdthoy673.0cm/[place] Peak GR.5mmHg Mitral Valve E/A ratio0.0 TDI E/Lateral E'0.0E/Medial E'0.0 Tricuspid Valve TR Peak [id number]/sRAP [id number] Peak Gr.24mmHg [id number] LEFT VENTRICLE The left ventricle is normal size. There is borderline to mild concentric left ventricular hypertrophy. The systolic function is mildly impaired.EF-45% There is mild to moderate hypokinesis in the mid-inferoseptal wall. Transmitral Doppler flow pattern is Grade II-pseudonormal filling dynamics. No left ventricle thrombus noted on this study. There is no ventricular septal defect visualized. There is no left ventricular aneurysm. There is no mass noted in the left ventricle. RIGHT VENTRICLE The right ventricle is normal size. There is normal right ventricular wall thickness. The right ventricular systolic function is normal. ATRIA The left atrium size is normal. The right atrium size is normal. The interatrial septum is intact with no evidence for an atrial septal defect. AORTIC VALVE The aortic valve is thickened but opens well. No aortic regurgitation is present. There is no aortic valvular stenosis. There is no aortic valvular vegetation. MITRAL VALVE The mitral valve is thickened but opens well. Mitral regurgitation is trace to mild. There is no mitral valve stenosis. There is no evidence of mitral valve prolapse. TRICUSPID VALVE The tricuspid valve leaflets are thickened , but open well. There is mild tricuspid regurgitation.RVSP-34 mmof hg. There is no tricuspid valve stenosis. There is no tricuspid valve prolapse or vegetation. PULMONIC VALVE The pulmonic valve is not well visualized. GREAT VESSELS The aortic root is normal in size. The ascending aorta is normal in size. The pulmonary artery is normal. The IVC is normal in size and collapses >50% with inspiration. PERICARDIAL EFFUSION There is no pleural effusion. There is a trace pericardial effusion. <Conclusion> There is borderline to mild concentric left ventricular hypertrophy. The systolic function is mildly impaired.EF-45% There is mild to moderate hypokinesis in the mid-inferoseptal wall. Mitral regurgitation is trace to mild. There is mild tricuspid regurgitation.RVSP-34 mmof hg. The IVC is normal in size and collapses >50% with inspiration. There is a trace pericardial effusionS/p Code STEMI and PTCA Cx/RCA
[2017-05-31] MEDS: Latanoprost 2.5 ml Opht Soln OD SCH (22:13)
[2017-06-01 07:38] LABS: BASO # 0.02 K/mm3 (0.0-2.0); BASO % 0.2 % (0.0-3.0); EOS # 1.1 (0.0-0.7); EOS % 11.4 % (1.5-5.0); GRAN # 6.2 (1.4-6.5); GRAN % 66.7 % (50.0-68.0); HEMOGLOBIN 12.3 g/dL (14.0-18.0); LYMPH # 1.3 (1.2-3.4); LYMPH % 14.2 % (22.0-35.0); MEAN CORPUSCULAR HEMOGLOBIN 27.2 pg (25.0-35.0); MEAN CORPUSCULAR HGB CONC 30.5 g/dl (31.0-37.0); MONO # 0.7 (0.1-0.6); MONO % 7.5 % (1.0-6.0); RBC 4.53 10^6/uL (3.5-6.1); RED CELL DISTRIBUTION WIDTH 14.8 % (11.5-14.5); WHITE BLOOD COUNT 9.3 10^3/ul (4.5-11.0)
[2017-06-01 07:40] LABS: INR 1.09 (0.93-1.08); PARTIAL THROMBOPLASTIN TIME 31.6 Seconds (25.1-36.5); PROTHROMBIN TIME 12.6 SECONDS (9.4-12.5)
[2017-06-01 07:48] LABS: ALBUMIN 3.6 g/dL (3.0-4.8); ALT/SGPT 33 U/L (7-56); AST/SGOT 45 U/L (17-59); BLOOD UREA NITROGEN 19 mg/dL (7-21); CALCIUM 9.2 mg/dL (8.4-10.5); GFR AFRICAN-AMERICAN > 60; GFR NON-AFRICAN AMERICAN 55
[2017-06-01] MEDS: Insulin Reg-MEDIUM-Coverage SC SCH (08:01)
[2017-06-01] MEDS: Pantoprazole 40 mg EC Tab PO SCH (08:03)
[2017-06-01] MEDS: Dorzolamide 2%/Timolol 0.5% 100 DROP/10 ML BOTTLE OD SCH (08:04)
[2017-06-01] MEDS: Pilocarpine 1% Opht (15ml) OD SCH (08:05)
[2017-06-01] MEDS: Brimonidine 0.15% 50 DROP/5 ML BOTTLE OD SCH (08:05)
[2017-06-01] MEDS: PrednisoLONE 1% Opht Susp(5 ml) OS SCH (08:05)
[2017-06-01 08:07] VITALS: BP 111/72
--- NOTE | 2017-06-01 08:11 | PN ---
DATE: 05/31/2017 HISTORY OF PRESENT ILLNESS: This is a 66-year-old male who had come into the hospital because of non-ST elevation [place]. The patient had a PCI done during the hospitalization that was successful. The patient feels well. He had no complaints of any chest pain. No shortness of breath. No headaches or dizziness. No nausea. No vomiting. REVIEW OF SYSTEMS: All other review of symptoms are within normal limits except what is mentioned. PHYSICAL EXAMINATION: VITAL SIGNS: Temperature is 97.4, pulse of 66, blood pressure is 120/64, respirations are 19, and O2 saturation is 100%. GENERAL: The patient is lying in bed, flat, comfortable. HEENT: No oral lesion. Anicteric sclerae. Moist mucosa. NECK: No JVD, adenopathy, or thyromegaly. CARDIOVASCULAR: S1 and S2, regular. No murmurs, rubs, or gallops. LUNGS: Clear to auscultation bilaterally. No wheeze, rales, or rhonchi. ABDOMEN: Bowel sounds are positive, soft, nontender and nondistended. EXTREMITIES: No cyanosis, clubbing or edema. DISCHARGE DIAGNOSES: 1. Non ST-elevation myocardial infarction. 2. Diabetes type 2. 3. Pacemaker. 4. Hypertension. 5. Glaucoma. 6. Arthritis. 7. Coronary artery disease. PLAN: The patient is currently comfortable. He is on his eye drops. He is on Brilinta. The patient is on Colace for constipation. He is on losartan for hypertension. The patient continue with aspirin, I advised him the importance of continuing with the aspirin. The patient is on gemfibrozil for dyslipidemia. The patient is on Lopressor, this will be continued. I did have a long conversation about the medications he is going to continue, which is basically everything is done including his aspirin. He was advised the importance to follow up with his physician, Dr. Saul from Cardiology and [facility] in [place]. We will await final clearance by Dr. Saul. Laith Loredo MD
--- NOTE | 2017-06-01 08:16 | DS ---
HISTORY OF PRESENT ILLNESS: The patient is a 66-year-old male who has come into the hospital because of chest pain. He was a . The patient was found to have ST-segment elevation. He had a PTCA done of the circumflex. The patient most likely has an intrastent thrombosis. He is feeling well. He has no complaints of any chest pain or shortness of breath. No headaches or dizziness. PHYSICAL EXAMINATION: VITAL SIGNS: Temperature is 97.4, pulse is 60, blood pressure 107/61, respirations 20, O2 saturation 100%. GENERAL: The patient is lying in bed, flat, comfortable. HEENT: No oral lesion. Anicteric sclerae. Moist mucosa. NECK: No JVD, adenopathy, or thyromegaly. CARDIOVASCULAR: S1 and S2, regular. No murmurs, rubs, or gallops. LUNGS: Clear to auscultation bilaterally. No wheeze, rales, or rhonchi. ABDOMEN: Bowel sounds are positive, soft, nontender and nondistended. EXTREMITIES: No cyanosis, clubbing or edema. ASSESSMENT: 1. Acute coronary artery syndrome/ST elevation myocardial infarction. 2. Coronary artery disease. 3. Diabetes type 2. 4. Pacemaker. 5. Hypertension. 6. Glaucoma. 7. Arthritis. PLAN: The patient is currently comfortable. He is on Brilinta. This has been switched over . The patient is on losartan. This is going to be decreased to 25 mg. The patient is continuing on his beta-blockers, metoprolol also has been decreased to 12.5 mg. He is trying to continue with his acetazolamide for his glaucoma. The patient is on Lipitor for dyslipidemia. He is on gemfibrozil. He is going to continue with his eye drops. An echo has been done. Dr. Saul from Cardiology continues to follow the patient. The patient had an EKG that showed an electronic atrial pacemaker that is 100% paced. The patient's echo shows an EF of 45%, moderate hypokinesis. Condition is stable. Activities increased as tolerated. Follow with primary care doctor in 1-[address] Saul in 1-2 weeks. Laith Loredo MD [facility] # [id number]
[2017-06-01] MEDS ORDERED: Potassium Chloride 20 mEq ER Tab PO ONE ×2 (08:43→10:30)
[2017-06-01 08:44] VITALS: TEMP 98.1
[2017-06-01 10:38] VITALS: PULSE 63; RESP 24
--- NOTE | 2017-06-01 11:14 | PN ---
DATE: REASON FOR CONSULTATION AND FOLLOWUP: Status post code STEMI, status post PTCA of RCA and circumflex dated 05/29/2017. SUBJECTIVE: The patient denies any chest pain, shortness of breath or any palpitations. Wants to go home. OBJECTIVE: GENERAL: Not in apparent distress. Still in ICU and need to be transferred to [facility]. VITAL SIGNS: Examination as follows, temperature afebrile, heart rate 50, and blood pressure 111/73. HEENT: PERRLA. Extraocular muscles intact. NECK: Supple. No carotid bruits or thyromegaly. CHEST: Clear to auscultation. HEART: S1 and S2, regular. ABDOMEN: Soft. EXTREMITIES: Clubbing and cyanosis negative. LABORATORY DATA: Blood workup as follows; WBC , hemoglobin 12.3, hematocrit 40.3, and platelet count 326. Chemistry shows sodium of 141, potassium of 3.3, chloride 112, carbon dioxide of 17, anion gap of 15, BUN of 19, and creatinine of 1.3. Troponin trended down to 13.4. EKG shows V-paced rhythm in the patient with CAD status post PTCA of circumflex LAD on 05/25/2017, status post code STEMI 05/29/2017. IMPRESSION: In-stent stenosis status post percutaneous transluminal coronary angioplasty of circumflex and right coronary artery, hypertension, hyperlipidemia, and diabetes. RECOMMENDATIONS: Continue baby aspirin, continue ticagrelor that is Brilinta 90 mg twice a day. Continue losartan 25 mg daily. Continue metoprolol 25 p.o. b.i.d. Hold home medications that include metoprolol 100, hold losartan 100 because of low blood pressure. Discussed with Dr. Loredo. We will supplement potassium and discharge home. We will give K-Dur stat. The patient is taking thus probably causing lowering in the potassium, so we will give another K-Dur 40 at 10:00 a.m. and possible discharge home. Jaylene Saul MD
--- NOTE | 2017-06-11 02:24 | CARD ---
APPROVED REPORT Procedure(s) performed: Complete Heart Catheterization Left Ventriculogram PTCA with Stenting HISTORY with oral treatment , previous diagnostic cath, tobacco history() : The patient is a former smoker , previous PCI (The PCI date was 05/24/2017), hypertension , dyslipidemia , presented with 2 day history of chest pain, and st elevation inferiorly. INDICATION The indication(s) include : STEMI (>12 hrs to = 24 hrs). CASE TECHNIQUE The patient was brought emergently to the Cardiac Catheterization Laboratory in a fasting state and was prepped and draped in a sterile manner. The right femoral groin was infiltrated with 2% Lidocaine subcutaneous anesthesia. A 6 Fr x 11 cm Erica sheath was inserted using coronary diagnostic catheters. The left coronary system was accessed and visualized with a Diagnostic catheter. The right coronary system was accessed and visualized with a Diagnostic catheter. The left ventricle was accessed and visualized with a Diagnostic catheter. Left ventricular/Aortic Valve gradient assessed on pullback. Hemostasis was obtained with manual pressure following sheath removal without any complications. The patient tolerated the procedure well and there were no complications associated with the procedure. Vessel Analysis The patient's coronary anatomy is right dominant. The left main coronary artery is a medium size vessel . There is a 30% stenosis . The left main bifurcates to the left anterior descending and circumflex. The left anterior descending artery is a medium size vessel Stent patent. There is a 50% stenosis in the proximal segment. The circumflex artery is a medium size vessel . There is a 50% stenosis in the proximal segment. The first obtuse marginal branch is a small size vessel . There is a 100% stenosis in the distal segment. The right coronary artery is a medium size vessel . There is a 50% stenosis in the proximal segment. 90% distal Left Ventricle The left ventricle is normal in size with ggeneral hyop contractility. The left ventricular ejection fraction is estimated to be 30%. PCI Technique Lesion Anticoagulation was achieved with Heparin. Percutaneous coronary intervention was performed on the mid circumflex artery segment. The lesion stenosis prior to intervention was 100% with JAYDEN 0 flow. A 6 Fr XB 3.5 Guide Catheter was used to engage the lm ostium. BALLOON DILATION A Balloon catheter 2.0 x 12 mm Sprinter RX was inserted and inflated up to 8.00atm for 11seconds. STENT DEPLOYMENT A drug-eluting stent 2.25 x 8 mm Resolute ARNULFO was inserted and inflated up to 8.00atm for 13seconds. Final angiography reveals 0 % stenosis with JAYDEN 2 flow. COMMENTS Distal vessel small PCI Technique Lesion 2 Percutaneous Coronary Intervention was performed on the distal circumflex artery segment. The lesion stenosis prior to intervention was 90% with JAYDEN 3 flow. A 6 Fr JR 4 Guide Catheter was used to engage the rca ostium. BALLOON DILATION A Balloon catheter 2.5 x 12 mm Sprinter RX was inserted and inflated up to 14.00atm for 4seconds. STENT DEPLOYMENT A drug-eluting stent 2.5 x 22 mm Resolute ARNULFO was inserted and inflated up to 14.00atm for 4seconds. Final angiography reveals 0 % stenosis with JAYDEN 3 flow. COMMENTS consider IVUS of RCA. PCI Technique Lesion 3 Percutaneous Coronary Intervention was performed on the mistal right coronary artery. Conclusion Successful PCI of om with jayden II flow. Sucessful PCI of RCA with ARNULFO. Recommendations Aggressive Medical Therapy Medical Therapy Consider IVUS of RCA.
== END 2017-06-01 13:42 | disposition home or self-care (01) | DRG 246 ==
LOC: ED 15:02 → CATH 16:20 → ICU 17:05
PROVIDERS: ADMIT Internal Medicine Medical Oncology; ATTEND Internal Medicine Nephrology
PROC: 027135Z Dilation of Coronary Artery, Two Arteries with Two Drug-eluting Intraluminal Devices, Percutaneous Approach (ICD-10-PCS; principal; 2017-05-29)
PROC: 4A023N7 Measurement of Cardiac Sampling and Pressure, Left Heart, Percutaneous Approach (ICD-10-PCS; 2017-05-29)
PROC: B2151ZZ Fluoroscopy of Left Heart using Low Osmolar Contrast (ICD-10-PCS; 2017-05-29)
PROC: B2111ZZ Fluoroscopy of Multiple Coronary Arteries using Low Osmolar Contrast (ICD-10-PCS; 2017-05-29)
PROC: 3E053PZ Introduction of Platelet Inhibitor into Peripheral Artery, Percutaneous Approach (ICD-10-PCS; 2017-05-29)
DX: T82.855A Stenosis of coronary artery stent, initial encounter (principal); I21.09 ST elevation (STEMI) myocardial infarction involving other coronary artery of anterior wall; I25.110 Atherosclerotic heart disease of native coronary artery with unstable angina pectoris; E11.9 Type 2 diabetes mellitus without complications; I10 Essential (primary) hypertension; H40.9 Unspecified glaucoma; M19.90 Unspecified osteoarthritis, unspecified site; E78.5 Hyperlipidemia, unspecified; K59.00 Constipation, unspecified; H54.62 Unqualified visual loss, left eye, normal vision right eye; Y83.1 Surgical operation with implant of artificial internal device as the cause of abnormal reaction of the patient, or of later complication, without mention of misadventure at the time of the procedure; Z79.82 Long term (current) use of aspirin; Z79.84 Long term (current) use of oral hypoglycemic drugs; Z87.891 Personal history of nicotine dependence

== ENCOUNTER 2018-08-15 08:36 | Outpatient (CLI) | payer OTHER | END 2018-08-15 08:37 | disposition home or self-care (01) | LOC: CARDIO 08:36 | DX: E11.9 Type 2 diabetes mellitus without complications (principal); Z95.0 Presence of cardiac pacemaker; R07.89 Other chest pain; I10 Essential (primary) hypertension ==